=== PATIENT | female | born 1945 | race Caucasian/White ===

== ENCOUNTER 2021-11-10 17:50 | Emergency (ER) | payer OTHER, MEDICARE ==
--- OUTSIDE RECORDS SUMMARY | 2021-11-10 17:53 | XMS REPORT | Continuity of Care Document ---
:1945 Author Organization [facility] t Address [address] [place] [address] Dr. Martinez. [address] [place] [address] Care Team Providers Name Role Phone Michael WAGNER Primary Care Physician Unavailable SYSTEM, NOT IN Attending Clinician Unavailable [place] Attending Clinician Unavailable HERMINIA Attending Clinician Unavailable Katie Ware Attending Clinician Unavailable Ar DIAS, Laura Attending Clinician Unavailable Ryan Quintanilla Attending Clinician RYAN OAKLEY Attending Clinician Unavailable Raquel BROCK Attending Clinician Michael Wagner MD Attending Clinician Michael WAGNER Attending Clinician Unavailable REGULO Attending Clinician Unavailable FISH Attending Clinician Unavailable Payers Payer Name Policy Type Policy Effective Date Expiration Date Sour ce Number MEDICAREMEDICARE PART [id number] 2008 MD Camarena A AND 00:00:00 [id number] 2007-P [phone] [facility] [address] [address]Medicare [employer] [id number] 2020 MD Camarena OF RETIRED 00:00:00 PERSONSAARP-SECONDARY [id number] 1-Present [address], [place] [address]Txwbbmu Problems Condition Condition Condition Status Onset Resolution Last Treating Co mments Source Name Details Category Date Date Treatment Clinician Date Mastodynia Mastodynia Disease Active Overview : MD of right of right 3-09 Formattin And erso breast breast 00:00: g of this n 00 note might be different from the original. Right breast pain Mammograph Mammograph Disease Active M D y abnormal y abnormal 11-05 Carolee duarte 00:00: n 00 Allergies, Adverse Reactions, Alerts This patient has no known allergies or adverse reactions. Family History Family Member Diagnosis Comments Start Date Stop Date Source Natural brother Colon cancer MD Parminder carl Natural brother Heart attack MD Parminder carl Natural brother Skin cancer Olu son Natural father Lung cancer MD Castro on Maternal grandmother Heart failure Anthony Camarena Natural mother Melanoma MD Ramona dickens Natural mother Pancreatic cancer MD Camarena Natural mother Skin cancer MD Castro on Natural sister Heart failure MD Parminder carl Natural sister Heart attack Olu son Natural sister Kidney failure Social History Social Habit Start Date Stop Date Quantity Comments Source History of tobacco use Alcohol intake 2020-11-29 2020-11-29 Lifetime MD Ramona dickens 00:00:00 00:00:00 non-drinker (finding) Cigarettes smoked 2020-11-18 2020-11-18 MD Parminder carl current (pack per 00:00:00 00:00:00 day) - Reported Cigarette 2020-11-18 2020-11-18 MD Camarena pack-years 00:00:00 00:00:00 Tobacco use and 2020-11-18 2020-11-18 Smokeless tobacco MD Camarena exposure 00:00:00 00:00:00 non-user Tobacco Comment 2020-11-18 2020-11-18 current vaping MD Carolee amador 00:00:00 00:00:00 [birth year] F MD Castro on 00:00:00 00:00:00 Smoking Status Start Date Stop Date Source Ex-smoker 2020-11-18 00:00:00 2020-11-18 00:00:00 Olu son Medications Ordered Filled Start Stop Current Ordering Indication Dosage Frequency Signature Comments Components Source Medication Medication Date Date Medication? Clinician (SIG) Name Name aspirin 81 Yes 81mg Take 81 mg M D mg EC 11-18 by mouth Anderso tablet 13:24: daily. n 14 cholecalcif Yes 1{tbl} Take 1 MD ingrid, 11-18 tablet by Anderso vitamin D3, 13:04: mouth n (VITAMIN D3 36 twice ORAL) daily. BIOTIN ORAL Yes 1{tbl} Take 1 MD 3-22 tablet by Anderso 13:03: mouth n 43 daily. calcium Yes 1{tbl} Take 1 MD carbonate 3-22 tablet by Olu so (CALCIUM 13:03: mouth n 500 ORAL) 43 daily. esomeprazol Yes 40mg Take 40 mg MD e (NexIUM) 3-22 by mouth Olu so 40 MG 13:03: daily. n capsule 43 cyanocobala Yes 500ug Take 500 M D min 3-22 mcg by Anderso (VITAMIN 13:03: mouth n B-12) 500 43 daily. mcg tablet multivitami Yes 1{tbl} Take 1 MD n/iron/foli 3-22 tablet by And erso c acid 13:03: mouth n (CENTRUM 43 daily. ORAL) lisinopril Yes 2{tbl} Take 2 MD (PRINIVIL,Z 3-15 tablets by An derso ESTRIL) 20 00:00: mouth n mg tablet 00 daily. verapamil Yes 1{tbl} Take 1 MD (CALAN-SR) 3-15 tablet by Parminder rso 240 mg CR 00:00: mouth n tablet 00 twice daily. LORazepam Yes 1{tbl} Take 1 MD (ATIVAN) 1 2-11 tablet by Parminder rso mg tablet 00:00: mouth at n 00 bedtime. furosemide Yes 1{tbl} Take 1 MD (LASIX) 40 1-09 tablet by Parminder rso mg tablet 00:00: mouth as n 00 needed. Vital Signs Vital Name Observation Time Observation Value Comments Source HEIGHT 2020-11-18 12:54:56 165.5 cm WEIGHT 2020-11-18 12:54:56 83.2 kg HEIGHT 2020-11-18 12:54:56 165.5 cm WEIGHT 2020-11-18 12:54:56 83.2 kg Systolic blood pressure 2020-11-18 17:54:56 137 mm[Hg] MD Camarena Diastolic blood pressure 2020-11-18 17:54:56 74 mm[Hg] MD Camarena Heart rate 2020-11-18 17:54:56 69 /min MD Olu natarajan Body temperature 2020-11-18 17:54:56 36.78 Janeth MD Coleen abarca Respiratory rate 2020-11-18 17:54:56 18 /min MD Coleen abarca Body height 2020-11-18 17:54:56 165.5 cm MD Olu natarajan Body weight 2020-11-18 17:54:56 83.2 kg MD Olu natarajan BMI 2020-11-18 17:54:56 30.38 kg/m2 MD Olu natarajan Oxygen saturation in 2020-11-18 17:54:56 95 /min MD Camarena Arterial blood by Pulse oximetry Procedures Procedure Date / Time Performed Performing Clinician Sourc e US BREAST COMPLETE 2020-11-19 19:25:46 Eleno Oakley MD BILATERAL MAMMO DIGITAL DIAGNOSTIC 2020-11-19 18:49:00 Eleno Oakley MD BILATERAL W HUGO HC 2019-NCOV COVID-19 2020-11-14 18:14:00 Maricel Wagner MD Plan of Care Planned Activity Planned Date Details Comments Source Future Scheduled Test 1950 00:00:00 COVID-19 Vaccination MD Camarena (1) [code = COVID-19 Vaccination (1)] Encounters Start End Encounter Admission Attending Care Care Encounter Source Date/Time Date/Time Type Type Clinicians Facility Department ID 2020-10-30 Eyad GOMEZ MDA MDA [id number] 16:50:00 PROVIDER Matthewgus dickens 2021-10-21 2021-10-21 Outpatient [facility] [id number] [place] 00:00:00 00:00:00 ZENIA [address] 2021-09-04 2021-09-04 Outpatient [facility] [id number] [place] 00:00:00 00:00:00 ZENIA [address] 2021-03-21 2021-03-21 [id number] [place] 00:00:00 00:00:00 CONCETTA [address] 2021-03-12 2021-03-12 [facility] [id number] [place] 00:00:00 00:00:00 CONC[address]TA [address] 2020-11-19 2020-11-19 Outpatient EL BRIDGES, MDA MDA [id number] 13:52:47 13:52:47 ELENO Zurita rso n 2020-11-19 2020-11-19 Outpatient EL BRIDGES, MDA MDA [id number] 12:57:15 12:57:15 ELENO Zurita rso n 2020-11-18 2020-11-18 Outpatient EL CHECKA, MDA MDA [id number] 12:48:38 15:06:20 MARICEL Olu so n 2020-11-18 2020-11-18 Outpatient EL CHECKA, MDA MDA [id number] MD 12:45:43 12:51:39 MARICEL Olu so n 2020-11-15 2020-11-15 Outpatient EL CHECKA, MDA MDA [id number] MD 09:07:51 09:07:51 MARICEL Olu so n 2020-11-15 2020-11-15 Outpatient EL CHECKA, MDA MDA [id number] MD 09:07:50 09:07:50 MARICEL Olu so n 2020-11-15 2020-11-15 Outpatient EL CHECKA, MDA MDA [id number] 09:07:48 09:07:48 MARICEL Olu so n 2020-11-15 2020-11-15 Outpatient EL CHECKA, MDA MDA [id number] MD 09:07:46 09:07:46 MARICEL Olu so n 2020-11-15 2020-11-15 Outpatient EL CHECKA, MDA MDA [id number] MD 09:07:45 09:07:45 MARICEL Olu so n 2020-11-14 2020-11-14 Outpatient EL CHECKA, MDA MDA [id number] MD 12:39:47 13:15:08 MARICEL Olu so n 2020-04-22 2020-04-22 Outpatient [facility] [id number] [place] 00:00:00 00:00:[address] 2020-04-22 2020-04-22 Outpatient REGULO [facility] [id number] [place] 00:00:00 00:00:[address] 2020-04-22 2020-04-22 Outpatient [facility] [id number] [place] [address] 00:00:00 00:00:[address] 2020-04-15 2020-04-15 Outpatient [facility] [id number] [place] 00:00:00 00:00:[address] 2020-03-26 2020-03-26 Outpatient RICO RAJPUT [facility] [id number] [place] 00:00:00 00:00:[address] 2020-03-08 2020-03-08 Outpatient [facility] [id number] [place] 00:00:00 00:00:00 DERRICK [address] 2019-11-14 2019-11-14 Outpatient FISH [facility] [id number] [place] 00:00:00 00:00:00 DERRICK [address] 2019-11-06 2019-11-06 Outpatient [facility] [id number] [place] 00:00:00 00:00:00 DERRICK [address] Results Test Description Test Time Test Comments Results Result Comments Source Mammography Digital Diagnostic Bilateral with Hugo 2020-10-29 14:16:50 Test Item Value Reference Range Interpretation Comme nts IMP (test code = IMP) Area of palpable concern in the right axilla requires additional evaluation. Anultrasound is recommended. BI-RADS Category 0:Incomplete: Needs Additional Imaging Evaluation PXN (test code = PXN) Erika Mike MD - 11/21/2020 CLINICAL INDICATION:Patient is a 75 year old female and is seen for breast lump MAMMO DIGITAL DIAGNOSTIC BILATERAL W TOMODigital Mammogram evaluated with Computer Aided Detection (CAD). COMPARISON:The present examination has been compared to prior imaging studies performed atan outside location on 05/14/2014, 02/26/2016, 09/21/2017, 09/22/2018 and10/09/2020. FINDINGS:There are scattered areas of fibroglandular density. The patient reports a palpable finding in the right axilla. There is nomammographic abnormality in the region of palpable concern. No dominant mass, distortion or suspicious calcifications are identified in theright breast. In the left breast, no dominant mass, distortion, or suspicious calcificationsare identified. Tomosynthesis performed in CC and MLO projections. IMPRESSION: Area of palpable concern in the right axilla requires additional evaluation. Anultrasound is recommended. BI-RADS Category 0:Incomplete: Needs Additional Imaging Evaluation Lab Interpretation (test code = 37427-0) Abnormal MD CamarenaMD COVID-19 (SARAHY-CoV-2) PCR [id number] 11:33:52 Test Item Value Reference Interpretation Comments Range COVID19 SARS New Patient Indication (test code = 54966) COVID19 SARS Result Not Detected Not Detected (test code = 69471-6) COVID19 SARS SARS-CoV-2 NOT Detected. Interpretation (test Reference Range: Not code = 49149) Detected Methodology: The Prasad RealTime SARS-CoV-2 assay is a qualitative real-time reverse colorer hides and skins polymerase chain reaction (store sales leader-PCR) test to detect RNA from SARS-CoV-2 in nasal, nasopharyngeal and oropharyngeal swabs from patients with signs and symptoms of infection who are suspected of COVID-19 by their health care provider. The Prasad RealTime SARS-CoV-2 performed on the CellScape000 System is a dual target assay with primers and probes for the RdRp and N genes. Results must be interpreted within the context of all relevant clinical and laboratory findings, and epidemiological risk factors. Positive results are indicative of the presence of SARS-CoV-2 RNA; clinical correlation with patient history and other diagnostic information is necessary to determine patient infection status. Positive results do not rule out bacterial infection or co-infection with other viruses. Negative results do not preclude SARS-CoV-2 infection and should not be used as the sole basis for patient management decisions. The Prasad RealTime SARS-CoV-2 assay is for in vitro diagnostic use under FDA Emergency Use Authorization only. Testing is limited to laboratories certified under the Clinical Laboratory Improvement Amendments of 1988 (CLIA), 42U.S.C. 263a, to perform high complexity tests. The Test was performed by the CLIA-certified, high-complexity [facility] ([facility]) at [facility] under the Food and Drug Administration (FDA) s Emergency Use Authorization. Factsheet for patients: https://www.[facility].org/ AbbottFactSheetPatientsFact sheet for healthcare providers: https://[email or web address].org/ AbbottFactSheetHCP Test performed by:[facility] [place] [address] [place], [place] [address] [place] [address]
--- OUTSIDE RECORDS SUMMARY | 2021-11-10 17:53 | XMS REPORT | Clinical Summary ---
:1945 Author Organization [facility] MD Raines [facility] Address [address] [place] [address] Care Team Providers Name Role Phone Nia Hollis MD Unavailable Michael Wagner MD Primary Care Provider Allergies Active Allergy Reactions Severity Noted Date Comments Levofloxacin Other (See Comments) High 04/18/2018 Pain in legs and arms Pain in legs Medications Medication Sig Dispensed Refills Start Date End Date Status BIOTIN ORAL Take 1 tablet by 0 A ctive mouth daily. calcium carbonate Take 1 tablet by 0 Active (CALCIUM 500 ORAL) mouth daily. verapamil (CALAN-SR) 240 Take 1 tablet by 0 11/12/19 21 Active mg CR tablet mouth twice daily. LORazepam (ATIVAN) 1 mg Take 1 tablet by 0 1 Active tablet mouth at bedtime. lisinopril Take 2 tablets 0 11/11/2020 Act gwendolyn (PRINIVIL,ZESTRIL) 20 mg by mouth daily. tablet furosemide (LASIX) 40 mg Take 1 tablet by 0 09/07/19 21 Active tablet mouth as needed. esomeprazole (NexIUM) 40 Take 40 mg by 0 Active MG capsule mouth daily. cyanocobalamin (VITAMIN Take 500 mcg by 0 Active B-12) 500 mcg tablet mouth daily. multivitamin/iron/folic Take 1 tablet by 0 Active acid (CENTRUM ORAL) mouth daily. cholecalciferol, vitamin Take 1 tablet by 0 Active D3, (VITAMIN D3 ORAL) mouth twice daily. aspirin 81 mg EC tablet Take 81 mg by 0 Active mouth daily. Active Problems Problem Noted Date Mastodynia of right breast 11/05/2020 Overview: Right breast pain Mammography abnormal 11/05/2020 Encounters Date Type Specialty Care Team Description 12/05/2020 Telephone Oncology Ayanna Ware 11/27/2020 Telephone Radiation Oncology Isaías Joyner, ARUN 11/19/2020 Ancillary Radiology Pola Oakley Mastodyni a of right breast; Procedure Ryan, PA Mammography abn ormal 11/19/2020 Ancillary Radiology Pola Oakley Mastodyni a of right breast; Procedure Ryan, PA Mammography abn ormal 11/19/2020 Travel 11/19/2020 Orders Only Deepak Holley, SARS-CoV-2 MD vaccination 11/18/2020 Office Visit Breast Surgical Checka, Maricel Franklin ia of right breast (Primary Dx); Oncology MD Michael Mammography abn ormal 11/18/2020 NPR Patient Access CheckaMaricel MD 11/18/2020 Orders Only Breast Surgical Ar, Magaly Sanchez RN 11/18/2020 Travel 11/15/2020 Ancillary Radiology CheckaMaricel Cancer Procedure MD Michael 11/15/2020 Ancillary Radiology CheckMaricel masters Cancer Procedure MD Michael 11/15/2020 Ancillary Radiology CheckMaricel masters Cancer Procedure MD Michael 11/15/2020 Ancillary Radiology CheckMaricel masters Cancer Procedure MD Michael 11/15/2020 Ancillary Radiology CheckaMaricel Cancer Procedure MD Michael 11/14/2020 Clinical Support Maricel Jones Suspect ed TONY Rodriguez MD (Primary Dx) 11/14/2020 Travel after 11/10/2020 Surgical History Surgery Date Site/Laterality Comments APPENDECTOMY 08/30/1983 - 08/29/1984 BACK SURGERY 08/30/1995 - 08/29/1996 COLONOSCOPY 08/30/2018 - 08/29/2019 HYSTERECTOMY 08/30/1983 - total- ovaries 08/29/1984 removed- benign fibroid tumor CHOLECYSTECTOMY 08/30/1993 - 08/29/1994 UPPER GASTROINTESTINAL 08/30/2018 - ENDOSCOPY 08/29/2019 SKIN SURGERY 08/30/2016 - Right right hand SCC- 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 Mcelroy- 2 different t ests- narrowing of blood vessels in hea d Family History Medical History Relation Name Comments Colon cancer Brother 1 Elijah removed Heart attack Brother 1 Elijah Skin cancer Brother 1 Elijah Heart attack Brother 2 Red Skin cancer Brother 2 Red Heart attack Brother 3 Lung cancer Father Donta Heart failure Maternal Grandmother Melanoma Mother Apurva Pancreatic cancer Mother Apurva Skin cancer Mother Apurva Heart failure Sister 1 Heart attack Sister 2 Kidney failure Sister 2 during cottrell splant Relation Name Status Comments Brother 1 Elijah Brother 2 Red Brother 3 Father Donta Maternal Grandmother Mother Apurva Sister 1 Sister 2 Social History Tobacco Use Types Packs/Day Years Used Date Former Smoker Electronic cigarette 0.5 10 Smokeless Tobacco: Never Used Comments: current vaping Alcohol Use Standard Drinks/Week Comments Never 0 (1 standard drink = 0.6 oz pure alcoho l) Sex Assigned at Date Recorded Female 11/15/2020 3:47 PM CDT Job Start Date Occupation Industry Not on file Not on file Not on file Obstetrics History Comments (1 miscarriage) Menarche: 13 Parity: 20 OCP: 1 yr Breast feed: no Total Hys age 38 HRT: 26 yrs Last Filed Vital Signs Vital Sign Reading Time Taken Comments Blood Pressure 137/74 11/18/2020 12:54 PM CDT Pulse 69 11/18/2020 12:54 PM CDT Temperature 36.8 C (98.2 F) 11/18/2020 12:54 PM CDT Respiratory Rate 18 11/18/2020 12:54 PM CDT Oxygen Saturation 95% 11/18/2020 12:54 PM CDT Inhaled Oxygen Concentration - - Weight 83.2 kg (183 lb 6.8 oz) 11/18/2020 12:54 PM CDT Height 165.5 cm (5' 5.16") 11/18/2020 12:54 PM CDT Body Mass Index 30.38 11/18/2020 12:54 PM CDT Plan of Treatment Health Maintenance Due Date Last Done Comments COVID-19 Vaccination (1) 1950 Procedures Procedure Name Priority Date/Time Associated Comments Diagnosis US BREAST COMPLETE Routine 11/19/2020 2:25 PM Mastodynia of r ight Results for this BILATERAL CDT breast procedure are in Mammography the results abnormal section. MAMMO DIGITAL Routine 11/19/2020 1:49 PM Mastodynia of right Results for this DIAGNOSTIC BILATERAL CDT breast procedure are in [facility] Mammography the results abnormal section. HC 2019-NCOV Routine 11/14/2020 1:14 PM Suspected COVID-19 Re sults for this COVID-19 CDT procedure are i n the results section. after 11/10/2020 Results US Breast Complete Bilateral (11/19/2020 2:25 PM CDT) Specimen Impressions [facility] - 11/19/2020 3:14 PM CDT There is no sonographic evidence of malignancy. Area of palpable concern in the right ax illa corresponds with benign axillary tissue. Recommend continued clinical fol low-up of the patient's reported area of clinical concern. Dr. Mike discussed the above findings with the patient at the time of her examination. Follow-up mammogram in 1 year is recomme nded. BI-RADS Category 2: Benign Finding(s) Narrative [facility] [place] - 11/19/2020 3:14 PM CDT CLINICAL INDICATION: Patient is a 75 year old female and is s een for breast lump FILMS COMPARED The present examination has been compare d to prior imaging studies performed at an outside location on 09/21/2017, 09/22 and 10/09/2020. Images were obtained in multiple scannin g planes. Real-time sonographic imaging of both br easts (including all 4 quadrants and retroareolar region) was performed. Re al time sonographic imaging of bilateral axilla was performed. The area of palpable concern in the righ t axilla corresponds with benign axillary tissue. No suspicious axillary adenopathy is visualized. Procedure Note Erika Mike MD - 11/19/2020 CLINICAL INDICATION: Patient is a 75 year old female and is s een for breast lump FILMS COMPARED The present examination has been compare d to prior imaging studies performed at an outside location on 09/21/2017, 09/22 and 10/09/2020. Images were obtained in multiple scannin g planes. Real-time sonographic imaging of both br easts (including all 4 quadrants and retroareolar region) was performed. Lowry l time sonographic imaging of bilateral axilla was performed. The area of palpable concern in the righ t axilla corresponds with benign axillary tissue. No suspicious axillary adenopathy is visualized. IMPRESSION: There is no sonographic evidence of david gnancy. Area of palpable concern in the right ax illa corresponds with benign axillary tissue. Recommend continued clinical fol low-up of the patient's reported area of clinical concern. Dr. Mike discussed the above findings with the patient at the time of her examination. Follow-up mammogram in 1 year is recomme nded. BI-RADS Category 2: Benign Finding(s) Performing Organization Address City/State/ZIP Code Phon e Number [facility] (ABNORMAL) Mammography Digital Diagnostic Bilateral with Hugo (11/19/2020 1:49 PM CDT) Specimen Impressions [facility] - 11/21/2020 9:16 AM CDT Area of palpable concern in the right ax illa requires additional evaluation. An ultrasound is recommended. BI-RADS Category 0: Incomplete: Needs Additional Imaging Sarah luation Narrative [facility] - 11/21/2020 9:16 AM CDT CLINICAL INDICATION: Patient is a 75 year old female and is s een for breast lump MAMMO DIGITAL DIAGNOSTIC BILATERAL W JEANE O Digital Mammogram evaluated with Compute r Aided Detection (CAD). COMPARISON: The present examination has been compare d to prior imaging studies performed at an outside location on 05/14/2014, 02/25, 09/21/2017, 09/22/2018 and 10/09/2020. FINDINGS: There are scattered areas of fibroglandu lar density. The patient reports a palpable finding i n the right axilla. There is no mammographic abnormality in the region o f palpable concern. No dominant mass, distortion or suspicio us calcifications are identified in the right breast. In the left breast, no dominant mass, di stortion, or suspicious calcifications are identified. Tomosynthesis performed in CC and MLO pr ojections. Procedure Note Erika Mike MD - 11/21/2020 CLINICAL INDICATION: Patient is a 75 year old female and is s een for breast lump MAMMO DIGITAL DIAGNOSTIC BILATERAL W JEANE O Digital Mammogram evaluated with Compute r Aided Detection (CAD). COMPARISON: The present examination has been compare d to prior imaging studies performed at an outside location on 05/14/2014, 02/25, 09/21/2017, 09/22/2018 and 10/09/2020. FINDINGS: There are scattered areas of fibroglandu lar density. The patient reports a palpable finding i n the right axilla. There is no mammographic abnormality in the region o f palpable concern. No dominant mass, distortion or suspicio us calcifications are identified in the right breast. In the left breast, no dominant mass, di stortion, or suspicious calcifications are identified. Tomosynthesis performed in CC and MLO pr ojections. IMPRESSION: Area of palpable concern in the right ax illa requires additional evaluation. An ultrasound is recommended. BI-RADS Category 0: Incomplete: Needs Additional Imaging Sarah luation Performing Organization Address City/State/ZIP Code Phon e Number JAMARI BROCK COVID-19 (SARAHY-CoV-2) PCR Asymptomatic (11/14/2020 1:14 PM CDT) COVID19 SARS New Patient [facility] Indication [facility] [place] COVID19 SARS Result Not Detected Not Detected [facility] COVID19 SARS SARS-CoV-2 NOT Detected. [facility] Interpretation [facility] Reference Range: Not Detected Methodology: The Prasad Real Time SARS-CoV-2 assay is a qualitative real-time reverse sales planner polymerase chain reaction (terminal system operator-PCR) test to detect RNA from SARS-CoV-2 in nasal, nasopharyngeal and oropharyngeal swabs from patients with signs and symptoms of infection who ar e suspected of COVID-19 by their health care provider. The Prasad RealTime SARS-CoV-2 performed on the [employer]000 System is a dual target assay with primers and probes for the RdRp and N genes. Results must be interpreted within the context of all relevant clinical and laboratory findings, and epidemiological risk factors. Positive results are indicative of the presence of SARS-CoV-2 RNA; clinical correlation with patient history and other diagnostic information is ne cessary to determine patient infection status. Positive results do not rule out bacterial infection or co-infection with other viruses. Negative results do not preclude SARS- CoV-2 infection and should not be used as the sole basis for patient management decisions. The Prasad RealTime SARS-CoV -2 assay is for in vitro diagnostic use under FDA Emergency Use Authorization only. Testing is limited to laboratories certified under the Clinical Laboratory Improvement Sharon ndments of 1988 (CLIA), 42U.S.C. 263a, to perform high complexity tests. The T est was performed by the CLIA-certified, high- complexity Molecular Diagnostics Laboratory (MDL) at [facility] under the Food and Drug Administration (FDA) s Emergency Use Authorization. Factsheet for patients: https://www.[facility].org/Abb ottFactSheetPatients Factsheet for healthcare pro viders: https://www.[facility].org/AbbottFactSheetHCP Test performed by: [facility] [place] [facility] [address] [place] [address] Specimen Nasopharyngeal Swab Performing Organization Address City/State/ZIP Code Phon e Number [facility] CANCER Unless otherwise noted, [place] [address] CENTER all lab tests performed by: Division of Pathology and Laboratory Medicine [address] after 11/10/2020 Insurance Payer Benefit Plan Subscriber ID Effective Phone Address Typ e / Group Dates MEDICARE MEDICARE PART [id number] 2008-Pres [phone] [facility] Medicare A AND B ent [id number] [employer] [address] [facility] [place] [phone] [place] AARP-SECONDAR [id number] 2020-Pres [address] [place] [employer] ONLY ent [id number] [place] [address] (Home) [address] [place] [phone] Livier Brice Personal/Family Self 1945 [address] [place] [address] (Home) [address] [place] [phone] Care Teams Sprayer Leather Relationship Specialty Start Date End Date Nia Hollis, PCP - External Referring Obstetrics/Gynecology 10/31/[address] [place] [id number] Maricel Wagner, PCP - General Surgical Oncology 11/01/20 [facility] [place] [address]
--- NOTE | 2021-11-10 18:40 | RAD REPORT ---
EXAM DESCRIPTION: CT - Ct Stroke Brain Wo Cont - 11/10/2021 6:33 pm CLINICAL HISTORY: Numbness COMPARISON: 08/2021 TECHNIQUE: Computed axial tomography of the head was obtained. All CT scans are performed using dose optimization technique as appropriate and may include automated exposure control or mA/KV adjustment according to patient size. FINDINGS: An intracranial bleed is not seen . The ventricles are normal in caliber. No extra-axial fluid collection is noted. Mild to moderate low-density within periventricular, deep and subcortical white matter likely ischemi c changes secondary to small vessel disease Fluid within the sinuses/ mastoids is not seen. IMPRESSION: No acute intracranial abnormality is seen. If patient's symptoms persist MRI of the bra in would be recommended. Dr Baca of the emergency room was notified at 6:16 p.m. November 10, 2021
[2021-11-10 18:42] LABS: Absolute Lymphocytes (CBC) 2.3 K/uL (0.7-4.9); Hematocrit 38.7 % (36.0-45.0); Lymphocytes % 30.7 % (15.3-44.8); MPV 8.9 fL (7.6-11.3); RBC Red Blood Cell Count 4.51 M/uL (3.86-4.86)
[2021-11-10 18:48] LABS: Protime INR 0.98
[2021-11-10 18:58] LABS: Potassium 3.3 mmol/L (3.5-5.1)
--- NOTE | 2021-11-10 19:25 | ER ---
Nurse's Notes [facility] Name: Livier Brice Age: 76 yrs Sex: Female : 1945 Arrival Date: 11/10/2021 Time: 17:51 Bed 5 Private MD: Diagnosis: Hypertensive urgency;Paresthesia of skin Presentation: 11/10 17:58 Chief complaint: Patient states: she took her blood pressure at approx 1700 and it was ap3 168/147. She reports she began having a numbness/tingling feeling to the right side of her face around 1630. Coronavirus screen: At this time, the client does not indicate any symptoms associated with coronavirus-19. Ebola Screen: No symptoms or risks identified at this time. Initial Sepsis Screen: Does the patient meet any 2 criteria? No. Patient's initial sepsis screen is negative. Does the patient have a suspected source of infection? No. Patient's initial sepsis screen is negative. Risk Assessment: Do you want to hurt yourself or someone else? Patient reports no desire to harm self or others. Onset of symptoms was November 10, 2021 at 16:30. 17:58 Method Of Arrival: Ambulatory ap3 17:58 Acuity: MARY JANE 2 ap3 Triage Assessment: 18:00 General: Appears in no apparent distress. comfortable, Behavior is calm, cooperative. ap3 General: patient reports right side of face is tingling and feels "funny". Pain: Denies pain. Neuro: Level of Consciousness is awake, alert, obeys commands, Oriented to person, place, time, situation, Appropriate for age Gait is steady, Speech is normal, Facial symmetry appears normal. Cardiovascular: Patient's skin is warm and dry. Respiratory: Airway is patent Respiratory effort is even, unlabored. Historical: - Allergies: 18:00 No Known Allergies; ap3 - Home Meds: 18:00 Verapamil Oral [Active]; Clonidine Oral [Active]; ap3 - PMHx: 18:00 Hypertensive disorder; ap3 - Immunization history:: Client reports receiving the 2nd dose of the Covid vaccine. - Social history:: Smoking status: Patient denies any tobacco usage or history of. Screenin:03 Abuse screen: Denies threats or abuse. Nutritional screening: No deficits noted. ap3 Tuberculosis screening: No symptoms or risk factors identified. 18:26 Fall Risk None identified. ab2 18:57 Patient has been NPO before screening. The patient is alert, able to follow commands. jg9 The patient does not exhibit slurred or garbled speech The patient is not exhibiting difficulty speaking. The patient does not exhibit difficulty understanding words. The patient is able to swallow own secretions with no drooling or need for suction. Patient tolerated one teaspoon of water. No drooling, immediate coughing, gurgling, or clearing of the throat was noted. The patient tolerated 90mL of water. No drooling, immediate coughing, gurgling, or clearing of the throat was noted. The patient passed the bedside swallow screening. Oral medications may be given as ordered. Contact Physician for further diet orders. Assessment: 18:23 General: Appears in no apparent distress. comfortable, Behavior is calm, cooperative, ab2 appropriate for age. Pain: Denies pain. Neuro: Level of Consciousness is awake, alert, obeys commands, Oriented to person, place, time, situation, Appropriate for age Vice President Of Operations are equal bilaterally Moves all extremities. Gait is steady, Speech is normal, Facial symmetry appears normal, Pupils are PERRLA, Intact. Cardiovascular: No deficits noted. Denies chest pain, shortness of breath, Heart tones S1 S2 present Patient's skin is warm and dry. Rhythm is sinus rhythm. Respiratory: No deficits noted. Airway is patent Respiratory effort is even, unlabored, Respiratory pattern is regular, symmetrical, Breath sounds are clear bilaterally. GI: No deficits noted. No signs and/or symptoms were reported involving the gastrointestinal system. Abdomen is round non-distended, Bowel sounds present X 4 quads. Patient currently denies abdominal pain. : No deficits noted. No signs and/or symptoms were reported regarding the genitourinary system. EENT: No deficits noted. No signs and/or symptoms were reported regarding the EENT system. Derm: Skin is intact, is healthy with good turgor, Skin is dry, Skin is pink, warm \\T\\ dry. Musculoskeletal: No deficits noted. No signs and/or symptoms reported regarding the musculoskeletal system. Range of motion: intact in all extremities. 20:23 Reassessment: Pt stating she cannot be admitted to the hospital because she has to take sm5 care of her . Explained reasoning for admission and the possible risks of leaving AMA. Pt aware and understood. AMA paperwork signed. Pt informed if she has recurring symptoms to come back to ER. IV removed. Hospitalist made aware. Vital Signs: 17:58 BP 170 / 85; Pulse 72; Resp 17; Temp 98.8; Pulse Ox 96% ; Weight 81.65 kg; Height 5 ft. ap3 6 in. (167.64 cm); 18:22 BP 138 / 86; Pulse 60; Resp 16; Pulse Ox 98% on R/A; ab2 18:45 BP 129 / 69; Pulse 67; Resp 18 S; Pulse Ox 99% on R/A; jg9 20:23 BP 144 / 65; Pulse 56; Resp 18; Pulse Ox 100% on R/A; sm5 17:58 Body Mass Index 29.05 (81.65 kg, 167.64 cm) ap3 Maribell Coma Score: 18:26 Eye Response: spontaneous(4). Verbal Response: oriented(5). Motor Response: obeys ab2 commands(6). Total: 15. 20:23 Eye Response: spontaneous(4). Verbal Response: oriented(5). Motor Response: obeys sm5 commands(6). Total: 15. Trauma Score (Adult): 18:26 Eye Response: spontaneous(1); Verbal Response: oriented(1); Motor Response: obeys ab2 commands(2); Systolic BP: > 89 mm Hg(4); Respiratory Rate: 10 to 29 per min(4); Maribell Score: 15; Trauma Score: 12 NIH Stroke Scale Scores: 18:26 NIHSS Score: 0 ab2 18:29 NIHSS Score: 1 kdr ED Course: 17:51 Patient arrived in ED. ja2 18:00 Triage completed. ap3 18:03 Patient has correct armband on for positive identification. ap3 18:[address] via wheelchair. ap3 18:15 EKG done, by ED staff, reviewed by Sean Baca MD. 3 18:22 Ryan Badillo is Primary Nurse. ab2 18:22 Initial lab(s) drawn, by ia, sent to lab. Inserted saline lock: 20 gauge in right 3 antecubital area, using aseptic technique. Blood collected. 18:28 Arm band placed on right wrist. ab2 18:28 No provider procedures requiring assistance completed. ab2 18:29 Sean Baca MD is Attending Physician. kdr 18:33 CT Stroke Brain w/o Contrast In Process Unspecified. EDMS 18:59 Stroke CXR 1 View In Process Unspecified. EDMS 19:24 Popeye Euceda MD is Hospitalizing Provider. kdr 19:[address] In Process Unspecified. EDMS 19:[address] In Process Unspecified. EDMS 20:25 IV discontinued, intact, bleeding controlled, No redness/swelling at site. Pressure sm5 dressing applied. Administered Medications: No medications were administered Outcome: 19:25 Decision to Hospitalize by Provider. kdr 20:25 AMA AMA form signed sm5 20:25 Condition: stable 20:25 Instructed on need to come back to ER if symptoms reoccur 20:32 Patient left the ED. sm5 NIH Stroke Scale - NIH Stroke Score Date: 11/10/2021 Time: 18:26 Total Score = 0 1a. Level of Consciousness (LOC) - 0(Alert) 1b. Level of Consciousness (LOC) (Month \\T\\ Age) - 0(Both) 1c. LOC Commands (Open \\T\\ Closes Eyes/Sewing Department Supervisor) - 0(Both) 2. Best Gaze (Lateral Gaze Paresis) - 0(Normal) 3. Visual Field Loss - 0(No visual loss) 4. Facial Palsy - 0(Normal) 5a. Left Arm: Motor (10-second hold) - 0(No drift) 5b. Right Arm: Motor (10-second hold) - 0(No drift) 6a. Left Leg: Motor (5-second hold - always test supine) - 0(No drift) 6b. Right Leg: Motor (5-second hold - always test supine) - 0(No drift) 7. Limb Ataxia (finger/nose \\T\\ heel/valencia - test with eyes open) - 0(Absent) 8. Sensory Loss (pinprick arms/legs/face) - 0(Normal) 9. Best Language: Aphasia (description/naming/reading) - 0(No aphasia) 10. Dysarthria (speech clarity - read or repeat words) - 0(Normal) 11. Extinction and Inattention (visual/tactile/auditory/spatial/personal) - 0(No abnormality) Initials: ab2 NIH Stroke Scale - NIH Stroke Score Date: 11/10/2021 Time: 18:29 Total Score = 1 1a. Level of Consciousness (LOC) - 0(Alert) 1b. Level of Consciousness (LOC) (Month \\T\\ Age) - 0(Both) 1c. LOC Commands (Open \\T\\ Closes Eyes/Sewing Department Supervisor) - 0(Both) 2. Best Gaze (Lateral Gaze Paresis) - 0(Normal) 3. Visual Field Loss - 0(No visual loss) 4. Facial Palsy - 0(Normal) 5a. Left Arm: Motor (10-second hold) - 0(No drift) 5b. Right Arm: Motor (10-second hold) - 0(No drift) 6a. Left Leg: Motor (5-second hold - always test supine) - 0(No drift) 6b. Right Leg: Motor (5-second hold - always test supine) - 0(No drift) 7. Limb Ataxia (finger/nose \\T\\ heel/valencia - test with eyes open) - 0(Absent) 8. Sensory Loss (pinprick arms/legs/face) - 1(Mild to moderate loss) 9. Best Language: Aphasia (description/naming/reading) - 0(No aphasia) 10. Dysarthria (speech clarity - read or repeat words) - 0(Normal) 11. Extinction and Inattention (visual/tactile/auditory/spatial/personal) - 0(No abnormality) Initials: kdr Signatures: Dispatcher [employer] EDSean Gonzalez MD MD kdr Herrera, Deanna 3 Isabell Jhaveri RN RN [id number] Poly Azevedo Sarah RN RN sm5 Salma Morrissey RN RN jg9 Ryan Badillo
--- NOTE | 2021-11-10 19:25 | EDPHYS ---
Physician Documentation [facility] Name: Livier Brice Age: 76 yrs Sex: Female : 1945 Arrival Date: 11/10/2021 Time: 17:51 Bed 5 Private MD: ED Physician Sean Baca HPI: 11/10 19:17 This 76 yrs old Female presents to ER via Ambulatory with complaints of High Blood kdr Pressure, Numbness Of Face. 19:17 The patient has elevated blood pressure and discovered this at home. Onset: The kdr symptoms/episode began/occurred suddenly, at 1500. Modifying factors: The symptoms are aggravated by Nothing, The symptoms are alleviated by . Associated signs and symptoms: Pertinent positives: Paresthesia lateral to the right eye. Severity of symptoms: At its worst the blood pressure was mild, 164 mm Hg, in the emergency department the blood pressure is improved, moderately. The patient has not experienced similar symptoms in the past. The patient has been recently seen by a physician: Patient is under constant care by her [place] physicians. She states that her blood pressure is very labile. Today when she saw that her blood pressure elevated in the afternoon, she became very concerned. At about the same time she had this numbness and paresthesia (tightness) to the right lateral aspect of her face. That has subsequently resolved. She had no other focal neurologic symptoms or concerns. She appears to be back to baseline at this time.. Initial head CT was called to me as negative by Dr. Barnes. I discussed these findings with both Dr. Zheng and Dr. Hunter. Both agreed that the patient was not currently a candidate for TPA. Patient will be admitted this evening and have a angiogram of head and neck performed followed by an MRI MRA tomorrow. Dr. Hunter will see the patient as a consult tomorrow.. Historical: - Allergies: 18:00 No Known Allergies; ap3 - Home Meds: 18:00 Verapamil Oral [Active]; Clonidine Oral [Active]; ap3 - PMHx: 18:00 Hypertensive disorder; ap3 - Immunization history:: Client reports receiving the 2nd dose of the Covid vaccine. - Social history:: Smoking status: Patient denies any tobacco usage or history of. ROS: 19:17 Constitutional: Negative for fever, chills, and weight loss, Eyes: Negative for injury, kdr pain, redness, and discharge, ENT: Negative for injury, pain, and discharge, Neck: Negative for injury, pain, and swelling, Cardiovascular: Negative for chest pain, palpitations, and edema, Respiratory: Negative for shortness of breath, cough, wheezing, and pleuritic chest pain, Abdomen/GI: Negative for abdominal pain, nausea, vomiting, diarrhea, and constipation, Back: Negative for injury and pain, : Negative for injury, bleeding, discharge, and swelling, MS/Extremity: Negative for injury and deformity, Skin: Negative for injury, rash, and discoloration, Psych: Negative for depression, anxiety, suicide ideation, homicidal ideation, and hallucinations, Allergy/Immunology: Negative for hives, rash, and allergies, Endocrine: Negative for neck swelling, polydipsia, polyuria, polyphagia, and marked weight changes, Hematologic/Lymphatic: Negative for swollen nodes, abnormal bleeding, and unusual bruising. 19:17 Neuro: Positive for numbness, Right facial paresthesia resolved. Exam: 19:17 Constitutional: This is a well developed, well nourished patient who is awake, alert, kdr and in no acute distress. Her blood pressure is 129 over 60s Head/Face: Normocephalic, atraumatic. Eyes: Pupils equal round and reactive to light, extra-ocular motions intact. Lids and lashes normal. Conjunctiva and sclera are non-icteric and not injected. Cornea within normal limits. Periorbital areas with no swelling, redness, or edema. Neck: Trachea midline, no thyromegaly or masses palpated, and no cervical lymphadenopathy. Supple, full range of motion without nuchal rigidity, or vertebral point tenderness. No Meningismus. Chest/axilla: Normal chest wall appearance and motion. Nontender with no deformity. No lesions are appreciated. Cardiovascular: Regular rate and rhythm with a normal S1 and S2. No gallops, murmurs, or rubs. Normal PMI, no JVD. No pulse deficits. Respiratory: Lungs have equal breath sounds bilaterally, clear to auscultation and percussion. No rales, rhonchi or wheezes noted. No increased work of breathing, no retractions or nasal flaring. Abdomen/GI: Soft, non-tender, with normal bowel sounds. No distension or tympany. No guarding or rebound. No evidence of tenderness throughout. Back: No spinal tenderness. No costovertebral tenderness. Full range of motion. Skin: Warm, dry with normal turgor. Normal color with no rashes, no lesions, and no evidence of cellulitis. MS/ Extremity: Pulses equal, no cyanosis. Neurovascular intact. Full, normal range of motion. Neuro: Awake and alert, GCS 15, oriented to person, place, time, and situation. Cranial nerves II-XII grossly intact. Motor strength 5/5 in all extremities. Sensory grossly intact. Cerebellar exam normal. Normal gait. Psych: Awake, alert, with orientation to person, place and time. Behavior, mood, and affect are within normal limits. Vital Signs: 17:58 BP 170 / 85; Pulse 72; Resp 17; Temp 98.8; Pulse Ox 96% ; Weight 81.65 kg; Height 5 ft. ap3 6 in. (167.64 cm); 18:22 BP 138 / 86; Pulse 60; Resp 16; Pulse Ox 98% on R/A; ab2 18:45 BP 129 / 69; Pulse 67; Resp 18 S; Pulse Ox 99% on R/A; jg9 20:23 BP 144 / 65; Pulse 56; Resp 18; Pulse Ox 100% on R/A; sm5 17:58 Body Mass Index 29.05 (81.65 kg, 167.64 cm) ap3 NIH Stroke Scale Scores: 18:26 NIHSS Score: 0 ab2 18:29 NIHSS Score: 1 kdr Sanders Coma Score: 18:26 Eye Response: spontaneous(4). Verbal Response: oriented(5). Motor Response: obeys ab2 commands(6). Total: 15. 20:23 Eye Response: spontaneous(4). Verbal Response: oriented(5). Motor Response: obeys sm5 commands(6). Total: 15. Trauma Score (Adult): 18:26 Eye Response: spontaneous(1); Verbal Response: oriented(1); Motor Response: obeys ab2 commands(2); Systolic BP: > 89 mm Hg(4); Respiratory Rate: 10 to 29 per min(4); Sanders Score: 15; Trauma Score: 12 MDM: 19:17 Data reviewed: vital signs, nurses notes, lab test result(s), radiologic studies. kdr Counseling: I had a detailed discussion with the patient and/or guardian regarding: the historical points, exam findings, and any diagnostic results supporting the discharge/admit diagnosis, lab results, radiology results, the need for further work-up and treatment in the hospital. 19:25 Patient medically screened. [facility] 11/10 18:26 Order name: Basic Metabolic Panel; Complete Time: 19:09 [facility] 11/10 18:26 Order name: CBC with Diff; Complete Time: 19:09 [facility] 11/10 18:26 Order name: Protime (+inr); Complete Time: 19:09 [facility] 11/10 18:26 Order name: Ptt, Activated; Complete Time: 19:09 [facility] 11/10 18:33 Order name: Glucose, Ancillary Testing; Complete Time: 19:09 [facility] 11/10 19:53 Order name: COVID-19 SARS RT PCR (Document "Date of Onset" if Symptomatic) la1 11/10 18:26 Order name: CT Stroke Brain w/o Contrast; Complete Time: 19:09 [facility] 11/10 18:26 Order name: Stroke CXR 1 View; Complete Time: 20:04 [facility] 11/10 18:26 Order name: EKG; Complete Time: 18:27 [facility] 11/10 18:26 Order name: Accucheck; Complete Time: 18:35 [facility] 11/10 18:26 Order name: Cardiac monitoring; Complete Time: 18:35 [facility] 11/10 19:16 Order name: Head Angio CT [facility] 11/10 19:16 Order name: Neck Angio CT; Complete Time: 20:24 [facility] 11/10 18:26 Order name: EKG - Nurse/Tech; Complete Time: 18:36 [facility] 11/10 18:26 Order name: IV Saline Lock; Complete Time: 18:35 [facility] 11/10 18:26 Order name: Labs collected and sent; Complete Time: 18:36 [facility] 11/10 18:26 Order name: NPO; Complete Time: 18:56 [facility] 11/10 18:26 Order name: O2 Per Protocol; Complete Time: 19:04 [facility] 11/10 18:26 Order name: O2 Sat Monitoring; Complete Time: 18:56 [facility] 11/10 18:26 Order name: Stroke Swallow Screen; Complete Time: 18:56 7 Administered Medications: No medications were administered Disposition Summary: 11/10/21 20:31 Left Against Medical Advice Location: Home(11/10/21 20:31) jr8 Problem: new(11/10/21 20:31) jr8 Symptoms: are resolved(11/10/21 20:31) jr8 Condition: Stable(11/10/21 20:31) jr8 Diagnosis - Hypertensive urgency jr8 - Paresthesia of skin(11/10/21 20:31) jr8 Followup: jr8 - With: Private Physician - When: 1 - 2 days - Reason: Recheck today's complaints, Continuance of care, Re-evaluation by your physician Discharge Instructions: - Discharge Summary Sheet jr8 - Hypertension, Adult jr8 - Paresthesia jr8 NIH Stroke Scale - NIH Stroke Score Date: 11/10/2021 Time: 18:26 Total Score = 0 1a. Level of Consciousness (LOC) - 0(Alert) 1b. Level of Consciousness (LOC) (Month \\T\\ Age) - 0(Both) 1c. LOC Commands (Open \\T\\ Closes Eyes/Platemaker) - 0(Both) 2. Best Gaze (Lateral Gaze Paresis) - 0(Normal) 3. Visual Field Loss - 0(No visual loss) 4. Facial Palsy - 0(Normal) 5a. Left Arm: Motor (10-second hold) - 0(No drift) 5b. Right Arm: Motor (10-second hold) - 0(No drift) 6a. Left Leg: Motor (5-second hold - always test supine) - 0(No drift) 6b. Right Leg: Motor (5-second hold - always test supine) - 0(No drift) 7. Limb Ataxia (finger/nose \\T\\ heel/valencia - test with eyes open) - 0(Absent) 8. Sensory Loss (pinprick arms/legs/face) - 0(Normal) 9. Best Language: Aphasia (description/naming/reading) - 0(No aphasia) 10. Dysarthria (speech clarity - read or repeat words) - 0(Normal) 11. Extinction and Inattention (visual/tactile/auditory/spatial/personal) - 0(No abnormality) Initials: ab2 NIH Stroke Scale - NIH Stroke Score Date: 11/10/2021 Time: 18:29 Total Score = 1 1a. Level of Consciousness (LOC) - 0(Alert) 1b. Level of Consciousness (LOC) (Month \\T\\ Age) - 0(Both) 1c. LOC Commands (Open \\T\\ Closes Eyes/Platemaker) - 0(Both) 2. Best Gaze (Lateral Gaze Paresis) - 0(Normal) 3. Visual Field Loss - 0(No visual loss) 4. Facial Palsy - 0(Normal) 5a. Left Arm: Motor (10-second hold) - 0(No drift) 5b. Right Arm: Motor (10-second hold) - 0(No drift) 6a. Left Leg: Motor (5-second hold - always test supine) - 0(No drift) 6b. Right Leg: Motor (5-second hold - always test supine) - 0(No drift) 7. Limb Ataxia (finger/nose \\T\\ heel/valencia - test with eyes open) - 0(Absent) 8. Sensory Loss (pinprick arms/legs/face) - 1(Mild to moderate loss) 9. Best Language: Aphasia (description/naming/reading) - 0(No aphasia) 10. Dysarthria (speech clarity - read or repeat words) - 0(Normal) 11. Extinction and Inattention (visual/tactile/auditory/spatial/personal) - 0(No abnormality) Initials: kdr Signatures: Dispatcher [employer] EDMS Sean Baca MD MD kdr Paul Vee PA PA jr8 Kyle Freeman, COMMUNITY DEVELOPMENT WORKER-C COMMUNITY DEVELOPMENT WORKER-Cla1 Roslyn Reyes, RN RN jl7 Isabell Jhaveri RN RN ap3 Corrections: (The following items were deleted from the chart) 20:30 19:25 Observation kdr jr8 20:30 19:25 Popeye Euceda kdr jr8 20:30 19:25 Telemetry/MedSurg (observation) kdr jr8 20:30 19:25 Fair kdr jr8 20:30 19:25 new kdr jr8 20:30 19:25 are resolved kdr jr8 20:30 19:25 Standard kdr jr8 20:30 19:25 kdr jr8 20:30 19:25 Hypertensive heart disease without heart failure kdr jr8 20:30 19:25 Paresthesia of skin kdr jr8
--- NOTE | 2021-11-10 19:31 | RAD REPORT ---
EXAM DESCRIPTION: Jimbo Single View11/10/2021 6:59 pm CLINICAL HISTORY: cva COMPARISON: 2020 FINDINGS: The lungs appear clear of acute infiltrate. The heart is normal size IMPRESSION: No acute abnormalities displayed
--- NOTE | 2021-11-10 20:12 | RAD REPORT ---
EXAM DESCRIPTION: Delio Angio11/10/2021 7:53 pm CLINICAL HISTORY: Numbness COMPARISON: None TECHNIQUE: 50 cc Isovue 370 was administered intravenously. 3D MIP reconstruction performed All CT scans are performed using dose optimization technique as appropriate and may include automated exposure control or mA/KV adjustment according to patient size. FINDINGS: Artifact results in limited evaluation of a portion of the proximal right internal carotid artery. Mild plaque is present within the common and internal carotid arteries bilaterally Plaque results in a high-grade stenosis left external carotid artery. Vertebral arteries are generally codominant without significant abnormality. No dissection seen IMPRESSION: Mild plaque within common and internal carotid arteries NASCET criteria used. Mild 0-49% stenosis Moderate 50-69% stenosis Severe 70-99% stenosis
--- NOTE | 2021-11-10 20:25 | RAD REPORT ---
EXAM DESCRIPTION: CTHead angio11/10/2021 7:53 pm CLINICAL HISTORY: Numbness COMPARISON: None TECHNIQUE: CT angiogram of the head was obtained. 3D MIPS reconstruction performed. All CT scans are performed using dose optimization technique as appropriate and may include automated exposure control or mA/KV adjustment according to patient size. FINDINGS: The basilar, internal carotid, anterior cerebral, middle cerebral and posterior cerebral a rteries are normal caliber. An aneurysm is not seen. Hypoplastic A1 segment right anterior cerebral artery A significant stenosis is not noted. IMPRESSION: No significant abnormality displayed
[2021-11-10 20:39] VITALS: TEMP 98.8
[2021-11-10 20:42] VITALS: BP 144/65; O2SAT 100
--- NOTE | 2021-11-12 07:27 | EKG ---
Test Date: 2021-11-10 Test Time: 17:11:58 Reproductive Healthcare Assistant: RIVKA MEASUREMENT RESULTS: Intervals: Rate: 61 MT: 164 QRSD: 106 QT: 432 QTc: 434 Jones: P: 75 MT: 164 QRS: 76 T: -77 INTERPRETIVE STATEMENTS: Normal sinus rhythm Possible Anterior infarct, age undetermined Abnormal ECG Compared to ECG 07/22/2009 20:55:22 Myocardial infarct finding now present Sinus bradycardia no longer present Electronically Signed On 11-12-21 07:22:30 CDT by Nikolas Peterson
== END 2021-11-10 20:32 | disposition left against medical advice (07) ==
LOC: ER 17:50
DX: I16.0 Hypertensive urgency (principal); I10 Essential (primary) hypertension
CPT/HCPCS: 93005; 85025; 80048; 36415; 85610; 82947; 85730; 70496; 70498; 70450; 71045; 99285; Q9967

== ENCOUNTER 2022-05-03 15:58 | Inpatient (IN) | payer OTHER, MEDICARE ==
--- OUTSIDE RECORDS SUMMARY | 2022-05-03 16:01 | XMS REPORT | Clinical Summary ---
:1945 Author Organization [facility] MD Raines [facility] Address [address] [place] [address] Care Team Providers Name Role Phone Nia Hollis MD Unavailable Maricel Wagner MD Primary Care Provider Allergies Active [...] Overview: Right breast pain Mammography abnormal 11/05/2020 Surgical History Surgery Date Site/Laterality Comments APPENDECTOMY 08/30/1983 - 08/29/1984 BACK SURGERY 08/30/1995 - 08/29/1996 COLONOSCOPY 08/30/2018 - 08/29/2019 HYSTERECTOMY 08/30/1983 - total- ovaries 08/29/1984 removed- benign fibroid tumor CHOLECYSTECTOMY 08/30/1993 - 08/29/1994 UPPER GASTROINTESTINAL 08/30/2018 - ENDOSCOPY 08/29/2019 SKIN SURGERY 08/30/2016 - Right right hand SCC- 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 Jose Hale) SKIN SURGERY 08/30/1979 - Left Left Islam Alice noma- 08/29/1980 Dr Wray TUBAL LIGATION 08/30/1971 - 08/29/1972 Medical History Medical History Date Comments Hypertension 2005 Allergic rhinitis 1970 Gastric reflux 2000 Gastric ulcer 2019 Polyp of colon 2019 Gallstone 1994 removed Renal stone 2019 History of recurrent urinary tract 2013 infection Arthritis 1998 Malignant melanoma 1980 Left Islam Squamous cell carcinoma in situ of skin [...] HRT: 26 yrs Last Filed Vital Signs Not on file Plan of Treatment Health Maintenance Due Date Last Done Comments COVID-19 Vaccination (#1) 1945 Results Not on fileafter 05/03/2021 Insurance Payer Benefit Plan Subscriber ID Effective Phone Address Typ e / Group Dates MEDICARE MEDICARE PART [id number] 2008-Pres [phone] NOVITAS Medicare A AND B ent [id number] [place] [address] D[place] AARP-SECONDAR [id number] 2020-Pres P O BOX [employer] OF Y ONLY ent [id number] [place] [address] ([address]) [address] [place] [phone] Livier Brice Personal/Family Self 1945 [address] [place] [address] (Home) [address] [place] [phone] Care Teams Lathe Winder Relationship Specialty Start Date End Date Nia Hollis, PCP - External Referring Obstetrics/Gynecology 10/31/[address] [place] [id number] Maricel Wagner, PCP - General Surgical Oncology 11[facility]01/20 [facility] [place] [address]
--- OUTSIDE RECORDS SUMMARY | 2022-05-03 16:02 | XMS REPORT | Continuity of Care Document ---
:1945 Author Organization [facility] t Address [address] [place] [address] Care Team Providers Name Role Phone JESSICA DELGADO Primary Care Physician Unavailable Manjeet Santos Attending Clinician Unavailable SYSTEM, PROVIDER NOT IN Attending Clinician Unavailable [place] Attending Clinician [place] BROCK, Rebecca Dimas Attending Clinician CONCETTA HOPE Attending Clinician Unavailable ELENO CARTER Attending Clinician Unavailable JESSICA DELGADO Attending Clinician Unavailable RICO RAJPUT Attending Clinician Unavailable DERRICK WHITTEN Attending Clinician Unavailable Payers Payer Name Policy Type Policy Number Effective Date Expiration Date Brit caballero MEDICARE PART A [id number] 2008 AND B 00:00:00 AARP-SECONDARY [id number] 2020 ONLY 00:00:00 Problems Condition Condition Condition Status Onset Resolution Last Treating Co mments Source Name Details Category Date Date Treatment Clinician Date Mastodynia Mastodynia Disease Active Overview : Univers of right of right 3-09 Formattin ity of breast breast 00:00: g of this 00 note might be Ramona peter n from the Cancer original. 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 [place] n (disorder) (disorder) Active Problem 12/12/2021 [facility] Urinary Urinary Problem Active 2021-12-12 Me moria tract tract 04:50:30 l infectious 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) Active Problem 12/12/2021 [facility] Allergies, Adverse Reactions, Alerts Allergy Allergy Status Severity Reaction(s) Onset Inactive Treating Comm ents Source Name Type Date Date Clinician Levoflox Propensi Active 0 Pain in Metho di acin ty to 8-[address] adverse 00:00: Hospita reaction 00 l s to drug Levoflox Propensi Active Other (See 0 Pain in U nivers acin ty to Comments) 8-20 legs and ity o f adverse 00:00: arms Pain [place] reaction 00 in legs MD [facility] Family History Family Member Diagnosis Comments Start Date Stop Date Source Natural brother Colon cancer Univers ity [facility] MD Raines [facility] Natural brother Heart attack [facility] [place] MD Raines [facility] Natural brother Skin cancer [facility] [place] MD Raines [facility] Natural father Lung cancer Universit y [facility] MD Raines [facility] Natural father Cancer [facility] Maternal Heart failure [facility] MD [facility] Natural mother Melanoma [facility] MD Raines [facility] Natural mother [facility] Natural mother Skin cancer Universit y [facility] Olu son Cancer Center Natural mother Alzheimer's [facility] disease Natural sister Heart attack [facility] [place] MD [facility] Natural [facility] Natural sister Alzheimer's [facility] disease Natural sister [facility] Social History Social Habit Start Date Stop Date Quantity Comments Source History of tobacco [facility] [place] of use Jamel Raines [facility] Alcohol intake 2021-10-21 2021-10-21 Ex-drinker [facility] 00:00:00 00:00:00 (finding) Hospital Social History 2021-07-01 2021-07-01 [facility] sruthi 18:29:57 18:29:57 Cigarettes smoked 2020-11-18 2020-11-18 Univers ity of current (pack per 00:00:00 00:00:00 [place] Anthony Desai ) - Reported Cancer Ce nter Cigarette 2020-11-18 2020-11-18 University of pack-years 00:00:00 00:00:00 [place] MD Olu natarajan [facility] Tobacco use and 2020-11-18 2020-11-18 Smokeless Universit y of exposure 00:00:00 00:00:00 tobacco non-user [facility] Tobacco Comment 2020-11-18 2020-11-18 current vaping Unive rsity of 00:00:00 00:00:00 [place] MD Olu natarajan [facility] Sex Ass[birth year] At [birth year] [facility] 00:00:[facility] 00:00:00 Hospital Smoking Status Start Date Stop Date Source Ex-smoker 2019-04-25 00:00:00 2019-04-25 00:00:00 [facility] Medications Ordered Filled Start Stop Current Ordering Indication Dosage Frequency Signature Comments Components Source Medication Medication Date Date Medication? Clinician (SIG) Name Name [facility] Yes 81 mg = 1 Me moria Low Dose 4-12 tab, PO, l Aspirin 81 18:10: Daily, 0 Her peña mg oral 00 Refill(s) delayed release tablet cloNIDine Yes 0.1 mg = 1 Me moria 0.1 mg oral 4-12 tab, TAKE l tablet 17:17: 1 TABLET [place] 00 BY MOUTH TWICE DAILY ramipril 10 Yes TAKE 1 Aamir cindy mg oral 4-12 CAPSULE BY l capsule 17:17: MOUTH [place] 00 TWICE DAILY BIOTIN ORAL Yes Take by Met hodi 2-[address] 13:41: Hospita 28 l multivit-mi Yes Take by Met hodi n/iron/foli 2-[address] c/vit K1 13:41: Hospita (CENTRUM 28 l CHEWABLES ORAL) cyanocobala Yes 500ug QD Take 500 M ethodi min 2-[address] (cyanocobal 13:41: mouth Hospi ta griffin) 500 28 daily. l MCG tablet esomeprazol Yes 20mg QD Take 20 mg Methodi e (NexIUM) 2-[address] 20 MG 13:41: daily Hospita capsule 28 before l breakfast. calcium Yes Take by Methodi carbonate 2-[address] (CALCIUM 13:41: Hospita 500 ORAL) 28 l clonIDINE Yes 1{patch Q7D 1 patch Me thodi (CATAPRES-T 2-05 } once a st TS) 0.1 00:00: week. Hospita mg/24 hr 00 l ramipriL Yes 10mg QD Take 10 mg Met hodi (ALTACE) 10 2- by mouth st MG capsule 00:00: daily. Hospi ta 00 l clonIDINE Yes as needed. Me thodi (CATAPRES) 1-18 st 0.1 MG 00:00: Hospita tablet 00 l quetiapine 2020-08 Yes See Memoria 25 MG Oral 05 Instructio l Tablet 14:33: ns, Take 1 Maira nn [Seroquel] 00 tab po 1 hour prior to MRI, may repeat q 15 min. if still anxious, # 5 tab, 0 Refill(s), Pharmacy: [facility] 527, 167.64, cm, 07/01/21 13:52:00 CDT, Height, 83.636, kg, 07/01/21 13:52:00 CDT, Weight Vitamin B12 2020-08 Yes 0 Memori a 1-02 Refill(s) l 18:39: [place] 00 biotin 2020-08 Yes PO, Daily, Memor ia 1-02 0 l 18:39: Refill(s) [place] 00 Vitamin D3 2020-08 Yes 0 Memoria 1-02 Refill(s) l 18:39: [place] 00 Lorazepam 1 2020-08 Yes 1 mg = 1 Me moria MG Oral 1-02 tab, PO, l Tablet 18:37: Bedtime, 0 Maira nn 00 Refill(s) verapamil 2020-08 Yes 240 mg = 1 Me moria 240 mg oral 1-02 tab, 0 l tablet, 18:35: Refill(s) Maira nn extended 00 release lisinopril 2020-08 Yes 0 Memoria 20 mg oral 08-31 Refill(s) l tablet 18:35: [place] 00 aspirin 81 Yes 81mg Take 81 mg U nivers mg EC 3-22 by mouth ity of tablet 13:24: daily. [place] 14 [facility] cholecalcif Yes 1{tbl} Take 1 Un meera ingrid, 3-22 tablet by ity of vitamin D3, 13:04: mouth [place] (VITAMIN D3 36 twice ORAL) daily. [facility] BIOTIN ORAL Yes 1{tbl} Take 1 Un meera 3-22 tablet by ity of 13:03: mouth [place] 43 daily. MD [facility] calcium Yes 1{tbl} Take 1 Univer s carbonate 3-22 tablet by ity o f (CALCIUM 13:03: mouth [place] 500 ORAL) 43 daily. MD [facility] esomeprazol Yes 40mg Take 40 mg Univers e (NexIUM) 3-22 by mouth ity o f 40 MG 13:03: daily. [place] capsule 43 [facility] cyanocobala Yes 500ug Take 500 U nivers min 3-22 mcg by ity of (VITAMIN 13:03: mouth [place] B-12) 500 43 daily. mcg tablet [facility] multivitami Yes 1{tbl} Take 1 Un meera n/iron/foli 3-22 tablet by ity of c acid 13:03: mouth [place] (CENTRUM 43 daily. ORAL) [facility] verapamil Yes 1{tbl} Take 1 Univ ers (CALAN-SR) 3-15 tablet by ity of 240 mg CR 00:00: mouth [place] tablet 00 twice MD daily. [facility] lisinopril Yes 2{tbl} Take 2 Uni vers (PRINIVIL,Z 3-15 tablets by it y of ESTRIL) 20 00:00: mouth [place] mg tablet 00 daily. MD [facility] LORazepam Yes 1{tbl} Take 1 Univ ers (ATIVAN) 1 2-11 tablet by ity of mg tablet [place]:00[place] 00 bed[place]. [place] [facility] furosemide Yes 1{tbl} Take 1 Uni vers (LASIX) 40 1-09 tablet by ity of mg tablet 00:00: [place] 00 needed. [place] [facility] furosemide 2021- No 40mg Q2D Take 40 mg Methodi (LASIX) 40 02-[address] mg tablet 00:00: 00:00 every Hospit a 00 :00 other day. l lisinopriL 2021- No Method i (PRINIVIL) 01-09 st 10 mg 00:00: 00:00 Hospita tablet 00 :00 l captopril 2021- No Methodi (CAPOTEN) 03-11 st 50 MG 00:00: 00:00 Hospita tablet 00 :00 l verapamil Yes 240mg Q.5D Take 240 Met hodi sustained 7-[address] release 00:00: mouth 2 Hospita (CALAN-SR) 00 (two) l 240 MG SR times a tablet day. LORAZepam Yes 1mg Q.5D Take 1 mg Met hodi (ATIVAN) 1 6-[address] MG tablet 00:00: (two) Hospita 00 times a l day. Vital Signs Vital Name Observation Time Observation Value Comments Source HEIGHT 2020-11-18 12:54:56 165.5 cm WEIGHT 2020-11-18 12:54:56 83.2 kg Systolic (mm Hg) 2021-12-09 17:01:00 Aamir Mayes Diastolic (mm Hg) 2021-12-09 17:01:[facility] [place] Heart Rate 2021-12-09 17:01:00 [facility] Respitory Rate 2021-12-09 17:01:00 Lady Sullivan Height 2021-12-09 17:01:00 167.64 cm [facility] Weight 2021-12-09 17:01:00 [facility] BMI Calculated 2021-12-09 17:01:00 Lady Sullivan Systolic blood 2021-10-21 19:39:00 157 mm[Hg] [facility] pressure Diastolic blood 2021-10-21 19:39:00 72 mm[Hg] [facility] pressure Heart rate 2021-10-21 19:39:00 69 /min [facility] Body height 2021-10-21 19:39:00 167.6 cm [facility] Body weight 2021-10-21 19:39:00 81.285 kg [facility] BMI 2021-10-21 19:39:00 28.92 kg/m2 [facility] Oxygen saturation in 2021-10-21 19:39:00 95 /min [facility] Arterial blood by Pulse oximetry Body temperature 2021-09-04 18:52:00 36.28 Janeth [facility] Systolic (mm Hg) 2021-07-01 18:23:00 Aamir rial [place] Diastolic (mm Hg) 2021-07-01 18:23:00 Mem orial [place] Heart Rate 2021-07-01 18:23:00 [facility] [place] Respitory Rate 2021-07-01 18:23:00 Memori al [place] Height 2021-07-01 18:23:00 167.64 cm [facility] [place] Weight 2021-07-01 18:23:00 [facility] [place] BMI Calculated 2021-07-01 18:23:00 Memori al [place] Procedures Procedure Date / Time Performed Performing Clinician [facility] e Hysterectomy<sup>3</sup> Memoria l [place] Discectomy<sup>1</sup> [facility] [place] Gallbladder [facility] [place] operation<sup>2</sup> Plan of Care Planned Activity Planned Date Details Comments Source Future Scheduled 2022-04-29 HEPATITIS B VACCINES Met [place] [facility] Test 09:45:34 (1 of 3 - 3-dose series) [code = HEPATITIS B VACCINES (1 of 3 - 3-dose series)] Future Scheduled 2022-04-29 COVID-19 VACCINE (#1) [facility] Test 09:45:34 [code = COVID-19 VACCINE (#1)] Future Scheduled 2022-04-29 Hepatitis C screening [facility] Test 09:45:34 (procedure) [code = [id number]] Future Scheduled 2022-04-29 SHINGLES VACCINES (1 Met [facility] Test 09:45:34 of 2) [code = SHINGLES VACCINES (1 of 2)] Future Scheduled 2022-04-29 65+ PNEUMOCOCCAL [facility] Test 09:45:34 VACCINE (1 - PCV) [code = 65+ PNEUMOCOCCAL VACCINE (1 - PCV)] Future Scheduled 2022-04-29 INFLUENZA VACCINE [facility] Test 09:45:34 [code = INFLUENZA VACCINE] Future Scheduled 2022-03-04 COVID-19 Vaccination Uni [facility] Test 07:17:04 (#1) [code = COVID-19 [facility] Vacc[facility] (#1)] Center Encounters Start End Encounter Admission Attending Care Care Encounter Source Date/Time Date/Time Type Type Clinicians Facility Department ID 2022-03-16 Outpatient [facility] [id number] [facility] 11:37:00 [facility]ly [facility] [address] [facility] 2020-10-30 Outpatient SYSTEM, [facility] [id number] 16:50:00 PROVIDER Matthew dickens 2022-12-09 2022-12-09 Outpatient MHIE SHAHNAZ [id number] Memoria 13:30:00 13:30:00 03 eloy Mayes 2021-12-09 2021-12-10 Outpatient nullFlavo MNA [id number] Memoria 16:45:00 04:59:59 r Neurology 02 eloy Mayes 2021-12-09 2021-12-09 Outpatient ADAM HunterSCHRATNA [id number] 11:45:00 23:59:59 West 02 Farhad 2021-12-09 2021-12-09 Outpatient MHIE SHAHNAZ [id number] Memoria 11:45:00 11:45:00 02 eloy Mayes 2021-10-21 2021-10-21 Office [facility] 1.2.840.1 [id number] Methodi 13:40:00 14:04:47 Visit Zenia 26551.1.1 Isela [place] 3.430.2.7 Hospi ta .3.545270 l .8 2021-10-21 2021-10-21 Outpatient [facility] [id number] [place] 00:00:00 00:00:00 Isela KNUTSON i 2021-10-21 2021-10-21 Travel 1.2.840.1 [id number] Methodi 00:00:00 00:00:[address] 3.430.2.7 0.2.7.3.698 Ho spita .3.285162 084.8 l .8 2021-09-24 2021-09-26 Outside nullFlavo MNA [id number] Memoria 19:19:14 05:59:59 Medical r Neurology 00 l Records Christy Saucedaann 2021-09-24 2021-09-25 Outpatient MHMISCHER MHMISCHER [id number] 13:19:14 23:59:59 00 2021-09-04 2021-09-04 Office [facility] 1.2.840.1 [id number] Methodi 13:00:00 15:17:15 Visit Zenia 45098.1.[address] [facility] B. 3.430.2.7 Hospi ta .3.055593 l .8 2021-09-04 2021-09-04 Outpatient [facility] [id number] [place] 00:00:00 00:00:00 ZENIA, [address] 2021-09-04 2021-09-04 Travel 1.2.840.1 [id number] [id number] Methodi 00:00:00 00:00:[address] 3.430.2.7 0.2.7.3.698 Ho spita .3.505489 084.8 l .8 2021-07-29 2021-07-29 Ambulatory nullFlavo MNA [id number] Memoria 19:00:00 19:00:00 Pre-Reg r Neurology 01 l Christy Ger[place] 2021-07-29 2021-07-29 Outpatient MHIE MHIE [id number] Memoria 13:00:00 13:00:00 01 eloy Ger[place] 2021-07-29 2021-07-29 Outpatient Elsa MHMISCHER MHMISCHER [id number] 13:00:00 13:00:00 [place] 2021-07-012021-07-02 Outpatient nullFlavo MNA [id number] Memoria 18:30:00 04:59:59 r Neurology 00 l Christy Mayes 2021-07-01 2021-07-01 Outpatient ADAM Hunter [id number] 13:30:00 23:59:59 West 00 Farhad 2021-07-01 2021-07-01 Outpatient EWELINAIE EVAN [id number] Memoria 13:30:00 13:30:00 00 l [place] 2021-06-12 2021-06-12 Travel 1.2.840.1 [id number] Methodi 00:00:00 00:00:00 80413.1.1 350.1.13.43 031 3.430.2.7 0.2.7.3.698 Ho spita .3.777917 084.8 l .8 2021-03-21 2021-03-21 Outpatient HERMINIA, [facility] [id number] [place] 00:00:00 00:00:00 CONCETTA 690 Method i 2021-03-12 2021-03-12 Outpatient HERMINIA [facility] [id number] [place] 00:00:00 00:00:00 CONCETTA 935 Method i 2020-11-19 2020-11-19 Outpatient EL BRIDGES, MDA MDA [id number] 13:52:47 13:52:47 ELENO Zurita rso n 2020-11-19 2020-11-19 Outpatient EL BRIDGES, MDA MDA [id number] 12:57:15 12:57:15 ELENO Zur[place] rso n 2020-11-18 2020-11-18 Outpatient EL CHECKA, MDA MDA [id number] 12:48:38 15:06:20 JESSICA Raines so n 2020-11-18 2020-11-18 Outpatient EL CHECKA, MDA MDA [id number] 12:45:43 12:51:39 JESSICA Raines so n 2020-11-15 2020-11-15 Outpatient EL CHECKA, MDA MDA [id number] 09:07:51 09:07:51 JESSICA Raines so n 2020-11-15 2020-11-15 Outpatient EL CHECKA, MDA MDA [id number] 09:07:50 09:07:50 JESSICA Olu so n 2020-11-15 2020-11-15 Outpatient EL CHECKA, MDA MDA [id number] 09:07:48 09:07:48 JESSICA Olu so n 2020-11-15 2020-11-15 Outpatient EL CHECKA, MDA MDA [id number] 09:07:46 09:07:46 JESSICA Olu so n 2020-11-15 2020-11-15 Outpatient EL CHECKA, MDA MDA [id number] 09:07:45 09:07:45 JESSICA Olu so n 2020-11-14 2020-11-14 Outpatient EL CHECKA, MDA MDA [id number] MD 12:39:47 13:15:08 JESSICA Olu so n 2020-04-22 2020-04-22 Outpatient REGULO, JOHNATHONIE [facility] [id number] [place] 00:00:00 00:00:[address] 2020-04-22 2020-04-22 Outpatient REGULO, JOHNATHONIE [facility] [id number] [place] 00:00:00 00:00:[address] 2020-04-22 2020-04-22 Outpatient REGULO, RICO [facility] [id number] [place] 00:00:00 00:00:[address] 2020-04-15 2020-04-15 Outpatient REGULO, RICO [facility] [id number] [place] 00:00:00 00:00:[address] 2020-03-26 2020-03-26 Outpatient REGULO, JOHNATHONIE [facility] [id number] [place] 00:00:00 00:00:[address] 2020-03-08 2020-03-08 Outpatient FISH [facility] [id number] [place] 00:00:00 00:00:00 DERRICK [address] 2019-11-14 2019-11-14 Outpatient FISH, [facility] [id number] [place] 00:00:00 00:00:00 DERRICK [address] 2019-11-06 2019-11-06 Outpatient FISH [facility] [id number] [place] 00:00:00 00:00:00 DERRICK [address] Results This patient has no known results.
[2022-05-03] MEDS ORDERED: ASPIRIN 81 MG CHEWABLE TABLET ONE (16:39)
[2022-05-03] MEDS ORDERED: METOPROLOL TARTRATE 5 MG/5 ML INJ IV ONE (16:39)
[2022-05-03 16:44] LABS: Absolute Lymphocytes (CBC) 2.6 K/uL (0.7-4.9); Hematocrit 45.7 % (36.0-45.0); Lymphocytes % 24.7 % (15.3-44.8); MCV 85.6 fL (80-100); MPV 9.1 fL (7.6-11.3); RBC Red Blood Cell Count 5.34 M/uL (3.86-4.86)
[2022-05-03 16:51] LABS: Protime INR 1.08
--- NOTE | 2022-05-03 17:06 | RAD REPORT ---
EXAM DESCRIPTION: Jimbo Single View05/03/2022 4:57 pm CLINICAL HISTORY: Shortness of breath COMPARISON: December 2021 FINDINGS: Lungs are mildly hyperaerated. The lungs appear clear of acute infiltrate. The heart is normal size IMPRESSION: No acute abnormalities displayed
[2022-05-03 17:07] LABS: Albumin 3.9 g/dL (3.4-5.0); Bilirubin Direct 0.1 mg/dL (0-0.2); Bilirubin Total 0.6 mg/dL (0.2-1.0); Protein, Total 7.8 g/dL (6.4-8.2); Troponin High Sensitivity 45.2 pg/mL (<58.9)
[2022-05-03] MEDS ORDERED: NA CHLORIDE 0.9% 500 ML ONE (17:15)
[2022-05-03 17:32] LABS: Magnesium 2.2 mg/dL (1.8-2.4); Potassium 3.1 mmol/L (3.5-5.1)
[2022-05-03] MEDS ORDERED: POTASSIUM 25 MEQ EFFERV TAB ONE (18:03)
[2022-05-03] MEDS ORDERED: METOPROLOL TAR 25 MG TAB ONE (18:03)
--- NOTE | 2022-05-03 21:27 | EDPHYS ---
Physician Documentation [facility] Name: Livier Brice Age: 77 yrs Sex: Female : 1945 Arrival Date: 05/03/2022 Time: 15:59 Bed 15 Private MD: ED Physician Sean Baca HPI: 05/03 16:30 This 77 yrs old Female presents to ER via Ambulatory with complaints of Blood Pressure cp Problem, Shortness Of Breath, Irregular Pulse. 16:30 The patient has shortness of breath at rest. cp 16:30 Onset: The symptoms/episode began/occurred today, 2 hour(s) ago. Duration: The symptoms cp are continuous, and are steadily getting worse. 16:30 Associated signs and symptoms: Pertinent positives: shortness of breath, Pertinent cp negatives: productive cough, fever, active vomiting. 16:30 Severity of symptoms: in the emergency department the symptoms are unchanged despite cp home interventions. Historical: - Allergies: 16:08 No Known Allergies; iw - Home Meds: 16:07 clonidine HCl 0.1 mg oral tab once daily [Active]; verapamil Oral [Active]; Ramipril 20 iw Oral once daily [Active]; hydrochlorothiazide 12.5 mg Oral tab 1 tab 2 times per day [Active]; - PMHx: 16:07 Hypertensive disorder; iw - Immunization history:: Client reports receiving the 2nd dose of the Covid vaccine. - Social history:: Smoking status: Patient denies any tobacco usage or history of. ROS: 16:33 Constitutional: Negative for body aches, chills, fever, poor PO intake. cp 16:33 Cardiovascular: Positive for palpitations. cp 16:33 Respiratory: Positive for shortness of breath. 16:33 Eyes: Negative for injury, pain, redness, and discharge. cp 16:33 ENT: Negative for drainage from ear(s), ear pain, sore throat, difficulty swallowing, difficulty handling secretions. 16:33 Abdomen/GI: Negative for abdominal pain, diarrhea, constipation, active vomiting. 16:33 Neuro: Negative for altered mental status, dizziness, headache, loss of consciousness, syncope, weakness. 16:33 All other systems are negative. Exam: 16:22 ECG was reviewed by the Attending Physician. cp 16:35 Constitutional: The patient appears in no acute distress, alert, awake, cp non-diaphoretic, non-toxic, well developed, well nourished, uncomfortable. 16:35 Head/Face: Normocephalic, atraumatic. cp 16:35 Eyes: Periorbital structures: appear normal, Conjunctiva: normal, no exudate, no injection, Sclera: no appreciated abnormality, Lids and lashes: appear normal, bilaterally. 16:35 ENT: External ear(s): are unremarkable, Nose: is normal, Mouth: Lips: moist, Oral mucosa: pink and intact, moist, Posterior pharynx: Airway: no evidence of obstruction, patent, swelling, is not appreciated, erythema, is not appreciated, exudate, is not appreciated. 16:35 Neck: ROM/movement: is normal, is supple, without pain, no range of motions limitations. 16:35 Chest/axilla: Inspection: normal, Palpation: is normal, no crepitus, no tenderness. 16:35 Cardiovascular: Rate: tachycardic, Rhythm: regular, Edema: is not appreciated, JVD: is not appreciated. 16:35 Respiratory: the patient does not display signs of respiratory distress, Respirations: labored breathing, that is mild, Breath sounds: are clear throughout, no decreased breath sounds, no stridor, no wheezing. 16:35 Abdomen/GI: Inspection: abdomen appears normal, Palpation: abdomen is soft and non-tender, in all quadrants. 16:35 Back: pain, is absent, ROM is normal. 16:35 Neuro: Orientation: to person, place \T\ time. Mentation: is normal, Motor: moves all fours, strength is normal, Sensation: is normal. 17:52 ECG was reviewed by the Attending Physician. cp 20:42 ECG was reviewed by the Attending Physician. cp Vital Signs: 16:08 BP 138 / 87; Pulse 139; Resp 18; Temp 98.1(O); Pulse Ox 97% on R/A; Weight 80.74 kg; iw Height 5 ft. 6 in. (167.64 cm); 17:12 BP 103 / 70; Pulse 88; Resp 22; Pulse Ox 98% ; bp 18:22 BP 141 / 69; Pulse 60; Resp 19; Pulse Ox 97% ; bp 19:10 BP 145 / 72; Pulse 61; Resp 18 S; Pulse Ox 98% on R/A; as6 20:22 BP 137 / 63; Pulse 59; Resp 20 S; Pulse Ox 97% on R/A; as6 21:14 BP 135 / 58; Pulse 59; Resp 18 S; Pulse Ox 98% on R/A; as6 22:51 BP 143 / 56; Pulse 55; Resp 21 S; Pulse Ox 96% on R/A; as6 16:08 Body Mass Index 28.73 (80.74 kg, 167.64 cm) iw MDM: 16:20 Patient medically screened. cp 17:00 Differential diagnosis: Anemia CHF exacerbation, pneumonia, Pneumothorax pulmonary cp edema, Pulmonary Embolism. 21:20 Data reviewed: vital signs, nurses notes, lab test result(s), EKG, radiologic studies, cp plain films. 21:20 Test interpretation: by ED physician or midlevel provider: ECG, plain radiologic cp studies. Counseling: I had a detailed discussion with the patient and/or guardian regarding: the historical points, exam findings, and any diagnostic results supporting the discharge/admit diagnosis, lab results, radiology results, the need for further work-up and treatment in the hospital. Response to treatment: the patient's symptoms have markedly improved after treatment. 21:25 Physician consultation: Kyle Freeman was contacted at 21:25, regarding admission, to the telemetry unit. patient's condition. 05/03 16:20 Order name: Basic Metabolic Panel; Complete Time: 17:35 cp / 17:36 Interpretation: Normal except: K 3.1; GLUC 160; GFR 54. cp 05/03 16:20 Order name: CBC with Diff; Complete Time: 17:15 cp 05/03 17:15 Interpretation: Normal except: WBC 10.60; RBC 5.34; HGB 15.2; HCT 45.7; PLT 254. cp 05/03 16:20 Order name: LFT's; Complete Time: 17:35 cp /04 16:20 Order name: Magnesium; Complete Time: 17:35 cp / 16:20 Order name: NT PRO-BNP; Complete Time: 17:35 cp / 16:20 Order name: PT-INR; Complete Time: 17:15 cp 05/03 16:20 Order name: Troponin HS; Complete Time: 17:35 cp / 16:20 Order name: XRAY Chest (1 view); Complete Time: 17:15 cp 05/03 20:11 Order name: Troponin HS; Complete Time: 21:17 cp 05/03 21:28 Order name: SARS RAPID; Complete Time: 22:43 as6 05/03 22:43 Interpretation: Reviewed. cp 05/03 16:20 Order name: EKG; Complete Time: 16:21 cp 05/03 16:20 Order name: Cardiac monitoring; Complete Time: 16:36 cp 05/03 16:20 Order name: EKG - Nurse/Tech; Complete Time: 16:36 cp 05/03 16:20 Order name: IV Saline Lock; Complete Time: 16:36 cp 05/03 16:20 Order name: Labs collected and sent; Complete Time: 16:36 cp 05/03 16:20 Order name: O2 Per Protocol; Complete Time: 16:36 cp 05/03 16:20 Order name: O2 Sat Monitoring; Complete Time: 16:36 cp 05/03 17:36 Order name: EKG; Complete Time: 17:37 cp 05/03 17:36 Order name: EKG - Nurse/Tech; Complete Time: 17:49 cp 05/03 20:11 Order name: EKG - Nurse/Tech; Complete Time: 20:48 cp EC:22 Rate is 139 beats/min. Rhythm is regular. QRS interval is prolonged at 110 msec. QT cp interval is normal. T waves are Inverted in leads II, III, aVF. Interpreted by me. Reviewed by me. 17:52 Rate is 56 beats/min. Rhythm is regular. GA interval is normal. QRS interval is normal. cp QT interval is normal. T waves are Inverted in lead aVF. Interpreted by me. Reviewed by me. 20:42 Rate is 61 beats/min. Rhythm is regular. GA interval is normal. QRS interval is cp prolonged at 102 msec. QT interval is normal. T waves are Inverted in leads I, II, III, aVF, V4, V5, V6. Interpreted by me. Reviewed by me. Administered Medications: 16:45 Drug: Metoprolol 5 mg Route: IVP; Site: right antecubital; bp 16:45 Drug: Aspirin Chewable Tablet 324 mg Route: PO; bp 17:09 Follow up: Response: No adverse reaction bp 17:00 Drug: Metoprolol 5 mg Route: IVP; Site: right antecubital; bp 17:49 Follow up: Response: Marked relief of symptoms bp 17:08 Drug: NS 0.9% 500 ml Route: IV; Rate: bolus; Site: right antecubital; bp 23:15 Follow up: Response: No adverse reaction; IV Status: Completed infusion; IV Intake: as6 500ml 17:30 Drug: Metoprolol 25 mg Route: PO; bp 23:15 Follow up: Response: No adverse reaction as6 17:50 Drug: Potassium Effervescent Tablet 50 mEq Route: PO; bp 23:15 Follow up: Response: No adverse reaction as6 21:41 Drug: Lovenox (enoxaparin) 1 mg/kg Route: Sub-Q; Site: right lower abdomen; as6 23:15 Follow up: Response: No adverse reaction as6 Disposition: 05/04 07:07 Co-signature as Attending Physician, Sean Baca MD I agree with the assessment and kdr plan of care. Disposition Summary: 05/03/22 21:27 Hospitalization Ordered Hospitalization Status: [facility] Condition: Stable cp Problem: new cp Symptoms: have improved cp Bed/Room Type: Standard cp Provider: Jevon Merritt(05/03/22 22:02) la1 Room Assignment: [facility](05/03/22 23:07) Diagnosis - Tachycardia, unspecified cp - Chest pain, unspecified cp Forms: - Medication Reconciliation Form cp - SBAR form cp Signatures: Dispatcher [employer] EDSean Gonzalez MD MD [facility] Xuan Dee, ARUN DIAS Kyle Freeman, SCRAP BUNCH MAKER-C SCRAP BUNCH MAKER-Cla1 Oni Leahy PA PA cp Marge Ball RN RN cg Anand Goetz RN RN bp Slawson, Ashby, RN RN as6 Corrections: (The following items were deleted from the chart) 05/03 17:14 17:11 Constitutional: The patient appears in no acute distress, alert, awake, cp non-diaphoretic, non-toxic, well developed, well nourished, cp 17:14 17:11 Head/Face: Normocephalic, atraumatic. cp cp 17:14 17:11 Eyes: Periorbital structures: appear normal, Conjunctiva: normal, no exudate, no cp injection, Sclera: no appreciated abnormality, Lids and lashes: appear normal, bilaterally, cp 17:14 17:11 ENT: External ear(s): are unremarkable, Nose: is normal, Mouth: Lips: moist, Oral cp mucosa: pink and intact, moist, Posterior pharynx: Airway: no evidence of obstruction, patent, swelling, is not appreciated, erythema, is not appreciated, exudate, is not appreciated, cp 17:14 17:11 Chest/axilla: Inspection: normal, Palpation: is normal, no crepitus, no cp tenderness, cp 17:14 17:11 Cardiovascular: Rate: normal, Rhythm: regular, Edema: is not appreciated, JVD: is cp not appreciated, cp 17:14 17:11 Respiratory: the patient does not display signs of respiratory distress, cp Respirations: normal, no use of accessory muscles, no retractions, labored breathing, is not present, Breath sounds: are clear throughout, no decreased breath sounds, no stridor, no wheezing, cp 17:14 17:11 Abdomen/GI: Inspection: distension, that is mild, Bowel sounds: active, all cp quadrants, Palpation: soft, in all quadrants, moderate abdominal tenderness, in all quadrants, rebound tenderness, is not appreciated, involuntary guarding, is not appreciated, cp 17:14 17:11 Back: CVA tenderness, is absent, cp cp 17:14 17:11 Skin: cellulitis, is not appreciated, no rash present. cp cp 17:14 17:11 Neuro: Orientation: to person, place \T\ time. Mentation: is normal, Motor: moves cp all fours, strength is normal, Sensation: is normal, cp 22:02 21:27 Kyle Freeman cp la1 22:47 21:27 cp cg 23:07 22:47 417 cg cg 05/04 01:05/03 17:40 ECG was reviewed by the Attending Physician. cp cp 05/04 01:04 05/03 17:40 Rate is 139 beats/min. Rhythm is regular. QRS interval is prolonged at 110 cp msec. QT interval is normal. T waves are Inverted in leads II, III, aVF. Interpreted by me. Reviewed by me. cp
--- NOTE | 2022-05-03 21:27 | ER ---
Nurse's Notes [facility] Name: Livier Brice Age: 77 yrs Sex: Female : 1945 Arrival Date: 05/03/2022 Time: 15:59 Bed 15 Private MD: Diagnosis: Tachycardia, unspecified;Chest pain, unspecified Presentation: 05/03 16:05 Chief complaint: Patient states: my pulse was 130 at home, i feel SOB, I vomited this iw morning , no fever, reports very mild pain in chest , they gave me two more BP medicines , I haven't taken them yet, I am taking clonidine and I'm trying to taper off it. Coronavirus screen: At this time, the client does not indicate any symptoms associated with coronavirus-19. Ebola Screen: Patient negative for fever greater than or equal to 101.5 degrees Fahrenheit, and additional compatible Ebola Virus Disease symptoms Patient denies exposure to infectious person. Patient denies travel to an Ebola-affected area in the 21 days before illness onset. No symptoms or risks identified at this time. Initial Sepsis Screen: Does the patient meet any 2 criteria? No. Patient's initial sepsis screen is negative. Does the patient have a suspected source of infection? No. Patient's initial sepsis screen is negative. Risk Assessment: Do you want to hurt yourself or someone else? Patient reports no desire to harm self or others. Onset of symptoms was May 03, 2022. 16:05 Method Of Arrival: Ambulatory iw 16:05 Acuity: MARY JANE 2 iw Triage Assessment: 16:10 General: Appears in no apparent distress. comfortable, Behavior is calm, cooperative, bp appropriate for age. Pain: Denies pain. EENT: No deficits noted. Neuro: No deficits noted. Cardiovascular: Rhythm is sinus tachycardia. Respiratory: Reports shortness of breath Onset: The symptoms/episode began/occurred this morning, the patient has mild shortness of breath. GI: No signs and/or symptoms were reported involving the gastrointestinal system. : No signs and/or symptoms were reported regarding the genitourinary system. Derm: No deficits noted. Musculoskeletal: No deficits noted. Historical: - Allergies: 16:08 No Known Allergies; iw - Home Meds: 16:07 clonidine HCl 0.1 mg oral tab once daily [Active]; verapamil Oral [Active]; Ramipril 20 iw Oral once daily [Active]; hydrochlorothiazide 12.5 mg Oral tab 1 tab 2 times per day [Active]; - PMHx: 16:07 Hypertensive disorder; iw - Immunization history:: Client reports receiving the 2nd dose of the Covid vaccine. - Social history:: Smoking status: Patient denies any tobacco usage or history of. Screenin:10 Abuse screen: Denies threats or abuse. Denies injuries from another. Nutritional bp screening: No deficits noted. Tuberculosis screening: No symptoms or risk factors identified. Fall Risk None identified. Assessment: 16:10 General: SEE TRIAGE NOTE. bp 17:11 Reassessment: No changes from previously documented assessment. Patient states symptoms bp have improved. Cardiovascular: Rhythm is sinus rhythm. Respiratory: Airway is patent Respiratory effort is even, unlabored, Breath sounds are clear bilaterally. 18:22 Reassessment: Patient appears in no apparent distress at this time. Patient states bp symptoms have improved. Vital Signs: 16:08 BP 138 / 87; Pulse 139; Resp 18; Temp 98.1(O); Pulse Ox 97% on R/A; Weight 80.74 kg; iw Height 5 ft. 6 in. (167.64 cm); 17:12 BP 103 / 70; Pulse 88; Resp 22; Pulse Ox 98% ; bp 18:22 BP 141 / 69; Pulse 60; Resp 19; Pulse Ox 97% ; bp 19:10 BP 145 / 72; Pulse 61; Resp 18 S; Pulse Ox 98% on R/A; as6 20:22 BP 137 / 63; Pulse 59; Resp 20 S; Pulse Ox 97% on R/A; as6 21:14 BP 135 / 58; Pulse 59; Resp 18 S; Pulse Ox 98% on R/A; as6 22:51 BP 143 / 56; Pulse 55; Resp 21 S; Pulse Ox 96% on R/A; as6 16:08 Body Mass Index 28.73 (80.74 kg, 167.64 cm) iw ED Course: 15:59 Patient arrived in ED. as 16:07 Triage completed. iw 16:08 Arm band placed on. iw 16:10 Patient has correct armband on for positive identification. Bed in low position. Call bp light in reach. Side rails up X2. 16:13 Oni Leahy PA is PHCP. cp 16:13 Sean Baca MD is Attending Physician. cp 16:15 Inserted saline lock: 20 gauge in right antecubital area, using aseptic technique. bp Blood collected. 16:17 Anand Goetz, ARUN is Primary Nurse. bp 16:59 XRAY Chest (1 view) In Process Unspecified. EDMS 19:02 Primary Nurse role handed off by Anand oGetz RN as6 19:02 Sonu Martini RN is Primary Nurse. as6 21:26 Kyle Freeman is Hospitalizing Provider. cp 21:41 SARS RAPID Sent. as6 22:02 Jevon Merritt MD is Hospitalizing Provider. la1 23:14 No provider procedures requiring assistance completed. Patient admitted, IV remains in as6 place. Administered Medications: 16:45 Drug: Metoprolol 5 mg Route: IVP; Site: right antecubital; bp 16:45 Drug: Aspirin Chewable Tablet 324 mg Route: PO; bp 17:09 Follow up: Response: No adverse reaction bp 17:00 Drug: Metoprolol 5 mg Route: IVP; Site: right antecubital; bp 17:49 Follow up: Response: Marked relief of symptoms bp 17:08 Drug: NS 0.9% 500 ml Route: IV; Rate: bolus; Site: right antecubital; bp 23:15 Follow up: Response: No adverse reaction; IV Status: Completed infusion; IV Intake: as6 500ml 17:30 Drug: Metoprolol 25 mg Route: PO; bp 23:15 Follow up: Response: No adverse reaction as6 17:50 Drug: Potassium Effervescent Tablet 50 mEq Route: PO; bp 23:15 Follow up: Response: No adverse reaction as6 21:41 Drug: Lovenox (enoxaparin) 1 mg/kg Route: Sub-Q; Site: right lower abdomen; as6 23:15 Follow up: Response: No adverse reaction as6 Medication: 23:15 VIS not applicable for this client. as6 Intake: 23:15 IV: 500ml; Total: 500ml. as6 Outcome: 21:27 Decision to Hospitalize by Provider. cp 23:14 Admitted to Tele accompanied by tech, via wheelchair, room 419, with chart. as6 23:14 Condition: stable 23:14 Instructed on the need for admit. 23:15 Patient left the ED. as6 Signatures: Dispatcher [employer] Nazanin Macdonald Irene, RN RN iw Kyle Freeman, DENTAL HYGIENE PROFESSOR-C DENTAL HYGIENE PROFESSOR-Cla1 Oni Leahy PA PA cp Peltier, Brian, RN RN bp Sonu Martini RN RN as6 Corrections: (The following items were deleted from the chart) 16:13 16:08 BP 138 / 87; Pulse 139bpm; Resp 18bpm; Pulse Ox 97% RA; 80.74 kg; Height 5 ft. 6 iw in.; BMI: 28.7; iw
[2022-05-03] MEDS ORDERED: ENOXAPARIN 80 MG/0.8 ML SQ ONE (21:41)
[2022-05-03 22:13] LABS: SARS-CoV-2 Antigen Rapid Res Negative (Negative)
[2022-05-03] MEDS ORDERED: NITROGLYCERIN 1 GM PKT TD ONE (22:43)
[2022-05-03] MEDS ORDERED: IPRATROPIUM BROM 0.5MG/2.5ML ONE (22:44)
[2022-05-03] MEDS ORDERED: FAMOTIDINE 20 MG/2 ML VIAL IV ONE (22:44)
[2022-05-03] MEDS ORDERED: LEVALBUTEROL 1.25 MG/3 ML NEB ONE (22:44)
--- NOTE | 2022-05-03 22:47 | P.HP ---
Certification for Inpatient Patient admitted to: Inpatient With expected LOS: >2 Midnights Patient will require the following post-hospital care: None Practitioner: I am a practitioner with admitting privileges, knowledge of patient current condition, hospital course, and medical plan of care. Services: Services provided to patient in accordance with Admission requirements found in Title 42 Section 412.3 of the Code of Federal Regulations Patient History Date of Service: 05/03/22 Reason for admission: NSTEMI, near syncope History of Present Illness: 77-year-old female with history of hypertension presents emergency department for near syncope, tachycardia. She reports that while preparing breakfast this morning she became diaphoretic, nauseous, lightheaded almost passed out and vomited. After that she went to sleep, upon waking up was not feeling well and checked her blood pressure and heart rate found her heart rate was in the 130s she presented to the emergency department for evaluation. Upon arrival to the emergency department patient was tachycardic with a rate of 139 appeared to be sinus tachycardia she was given IV Lopressor which she did respond to. Labs were significant for potassium of 3.1 initial troponin 45.2-second opponent 60.7 BNP 630 chest x-ray negative for acute findings currently normal sinus rhythm rate of 60. Patient reports she is currently being weaned off of her clonidine for hypertension. Will admit patient for further evaluation and management of NSTEMI, near syncope. - Past Medical/Surgical History -: hypertension -: Cholecystectomy -: Back surgeries -: Hysterectomy Psychosocial/ Personal History: Patient lives at home with her - Family History Mother -: Cancer Father -: Cancer Brother -: Heart disease Sister -: Heart disease - Social History Smoking Status: Never smoker Alcohol use: No CD- Drugs: No Caffeine use: Yes Place of Residence: Home Review of Systems 10-point ROS is otherwise unremarkable Cardiovascular: Palpitations, Light Headedness, Other (near syncope, diaphoresis), As per HPI Gastrointestinal: Nausea, Vomiting Physical Examination - Physical Exam General: Alert, In no apparent distress, Oriented x3 HEENT: Atraumatic, PERRLA, Mucous membr. moist/pink, EOMI, Sclerae nonicteric Neck: Supple, 2+ carotid pulse no bruit, No LAD, Without JVD or thyroid abnormality Respiratory: Clear to auscultation bilaterally, Normal air movement Cardiovascular: Regular rate/rhythm, Normal S1 S2 Capillary refill: <2 Seconds Gastrointestinal: Normal bowel sounds, No tenderness Musculoskeletal: No tenderness Integumentary: No rashes Neurological: Normal speech, Normal strength at 5/5 x4 extr, Normal tone, Normal affect - Studies Laboratory Data (last 24 hrs) 05/03/22 16:34: PT 11.9, INR 1.08 05/03/22 16:34: WBC 10.60 D, Hgb 15.2 H, Hct 45.7 H D, Plt Count 254 D 05/03/22 16:34: Sodium 137, Potassium 3.1 L, BUN 17, Creatinine 1.05, Glucose 160 H, Magnesium 2.2, Total Bilirubin 0.6, AST 19, ALT 22, Alkaline Phosphatase 73 Assessment and Plan - Plan Assessment: NSTEMI/near syncope Hypertension Hypokalemia Plan: NSTEMI/near syncope: Patient presented with tachyarrhythmia appear to be sinus tachycardia responded well to beta-blockers, troponin and near syncope possibly related to demand ischemia/tachycardia, she is currently tapering off of clonidine. Second troponin mildly elevated covered with Lovenox, aspirin. We will monitor on telemetry, trend troponins, cardiology consult, echocardiogram ordered. Cover with aspirin, statin, beta dulce. Pt had near syncopal event at home as well. Hypertension: Continue metoprolol, appreciate further recommendations from cardiology Hypokalemia: replaced in ED, protocol in place DVT PPX: Therapeutic Lovenox Code status: Full Discharge Plan: Home Plan to discharge in: 48 Hours - Advance Directives Does patient have a Living Will: No Does patient have a Durable POA for Healthcare: No - Code Status/Comfort Care Code Status Assessed: Yes (Full code) Critical Care: No Time Spent Managing Pts Care (In Minutes): 70
[2022-05-03] MEDS ORDERED: CEFTRIAXONE 1000 MG/VIAL ONE (23:33)
[2022-05-03] MEDS ORDERED: LORAZEPAM 1 MG TABLET PO PRN (23:50)
[2022-05-03] MEDS ORDERED: ACETAMINOPHEN 500 MG TAB PO PRN (23:50)
[2022-05-03] MEDS ORDERED: ONDANSETRON 4 MG/2 ML VIAL IV PRN (23:50)
[2022-05-04 00:23] VITALS: O2SAT 97
[2022-05-04 03:33] VITALS: BMI 28.7
[2022-05-04] MEDS ORDERED: METOPROLOL TAR 25 MG TAB PO SCH (06:00)
[2022-05-04 06:14] LABS: Lymphocytes % 34.8 % (15.3-44.8); MCV 86.1 fL (80-100); RBC Red Blood Cell Count 4.65 M/uL (3.86-4.86)
[2022-05-04] MEDS ORDERED: ramipriL 5 MG CAP PO ONE (06:28)
[2022-05-04] MEDS ORDERED: hydroCHLOROthiazide 12.5 MG CAP PO ONE (06:29)
[2022-05-04 06:38] LABS: Albumin 3.3 g/dL (3.4-5.0); Bilirubin Total 0.5 mg/dL (0.2-1.0); Magnesium 2.2 mg/dL (1.8-2.4); Potassium 3.4 mmol/L (3.5-5.1); Protein, Total 6.6 g/dL (6.4-8.2); Thyroid Stimulating Hormone 2.54 uIU/mL (0.360-3.740); Troponin High Sensitivity 43.4 pg/mL (<58.9)
[2022-05-04] MEDS ORDERED: PNEUMOCOCCAL VACCINE 0.5 ML IMVAC ONE (08:00)
[2022-05-04] MEDS ORDERED: ENOXAPARIN 80 MG/0.8 ML SQ SCH (09:00)
[2022-05-04] MEDS ORDERED: ASPIRIN EC 81 MG TAB PO SCH (09:00)
--- NOTE | 2022-05-04 11:31 | EKG ---
Test Date: 2022-05-03 Test Time: 17:44:42 Learning Developer: JORDEN MEASUREMENT RESULTS: Intervals: Rate: 59 LA: 176 QRSD: 100 QT: 452 QTc: 447 Varney: P: 58 LA: 176 QRS: 52 T: 251 INTERPRETIVE STATEMENTS: Sinus bradycardia ST & T wave abnormality, consider lateral ischemia Abnormal ECG Compared to ECG 05/03/2022 16:17:08 Possible ischemia now present Supraventricular tachycardia no longer present ST (T wave) deviation still present Electronically Signed On 05-04-22 11:30:42 CDT by Nikolas Peterson
--- NOTE | 2022-05-04 11:31 | EKG ---
Test Date: 2022-05-03 Test Time: 16:17:08 Corrective [employer] Manual [employer] Therapist: JORDEN MEASUREMENT RESULTS: Intervals: Rate: 139 MO: QRSD: 110 QT: 350 QTc: 532 [place]: P: MO: QRS: 55 T: 243 INTERPRETIVE STATEMENTS: Supraventricular tachycardia Marked ST abnormality, possible inferolateral subendocardial injury Abnormal ECG Compared to ECG 11/10/2021 17:11:58 ST (T wave) deviation now present Sinus rhythm no longer present Myocardial infarct finding no longer present Electronically Signed On 05-04-22 11:30:46 CDT by Nikolas Peterson
[2022-05-04] MEDS ORDERED: lisinopriL 20 MG TAB PO SCH (12:00)
[2022-05-04 12:15] VITALS: BP 163/70; TEMP 96.9
--- NOTE | 2022-05-04 12:33 | P.DS ---
Admission Date: 05/03/22 Discharge Date: 05/04/22 Disposition: ROUTINE DISCHARGE Discharge Condition: GOOD Reason for Admission: NSTEMI, near syncope Consultations: Cardiology, recommend outpt follow up with her welt pocket machine operator Dr Mcelroy. Brief History of Present Illness: 7-year-old female with history of hypertension presents emergency department for near syncope, tachycardia. She reports that while preparing breakfast this morning she became diaphoretic, nauseous, lightheaded almost passed out and vomited. After that she went to sleep, upon waking up was not feeling well and checked her blood pressure and heart rate found her heart rate was in the 130s she presented to the emergency department for evaluation. Upon arrival to the emergency department patient was tachycardic with a rate of 139 appeared to be sinus tachycardia she was given IV Lopressor which she did respond to. Labs were significant for potassium of 3.1 initial troponin 45.2-second opponent 60.7 BNP 630 chest x-ray negative for acute findings currently normal sinus rhythm rate of 60. Patient reports she is currently being weaned off of her clonidine for hypertension. Will admit patient for further evaluation and management of NSTEMI, near syncope. Hospital Course: Patient responded well to intervention with blood pressure control medication of ramipril, hydrochlorothiazide and newly added metoprolol. She reported having been on a weaning protocol for clonidine as per outpatient nephrology/hypertension specialist. She was noted to have significantly low pulse which responded to metoprolol dose IV and also p.o. She will continue this dose pending follow-up with outpatient welt pocket machine operator and nephrology/hypertension specialist. Troponin trend while on admission was not significantly concerning. Other labs were not overtly concerning however she did have hypokalemia which she responded well to repletion. Vital Signs/Physical Exam: Temp Pulse Resp BP Pulse Ox 96.9 F 61 18 163/70 H 95 05/04/22 12:00 05/04/22 12:00 05/04/22 12:00 05/04/22 12:00 05/04/22 12:00 General: Alert, Oriented x3 HEENT: Atraumatic, Normocephalic Neck: Supple Respiratory: Normal air movement Cardiovascular: Regular rate/rhythm, Normal S1 S2 Gastrointestinal: Soft and benign Musculoskeletal: No swelling Neurological: Normal speech, Normal strength at 5/5 x4 extr Laboratory Data at Discharge: WBC 8.70 K/uL (4.3-10.9) D 05/04/22 05:19 Hgb 13.5 g/dL (12.0-15.0) 05/04/22 05:19 Hct 40.0 % (36.0-45.0) 05/04/22 05:19 Plt Count 194 K/uL (152-406) D 05/04/22 05:19 PT 11.9 SECONDS (9.5-12.5) 05/03/22 16:34 INR 1.08 05/03/22 16:34 Sodium 139 mmol/L (136-145) 05/04/22 05:19 Potassium 3.4 mmol/L (3.5-5.1) L 05/04/22 05:19 BUN 19 mg/dL (7-18) H 05/04/22 05:19 Creatinine 0.79 mg/dL (0.55-1.3) 05/04/22 05:19 Glucose 103 mg/dL (74-106) 05/04/22 05:19 Magnesium 2.2 mg/dL (1.8-2.4) 05/04/22 05:19 Total Bilirubin 0.5 mg/dL (0.2-1.0) 05/04/22 05:19 AST 14 U/L (15-37) L 05/04/22 05:19 ALT 18 U/L (12-78) 05/04/22 05:19 Alkaline Phosphatase 61 U/L (45-117) 05/04/22 05:19 Triglycerides 316 mg/dL (<150) H 05/04/22 05:19 Cholesterol 189 mg/dL (<200) 05/04/22 05:19 HDL Cholesterol 33 mg/dL (40-60) L 05/04/22 05:19 Cholesterol/HDL Ratio 5.73 05/04/22 05:19 Home Medications: Clonidine HCl [Clonidine HCl ER] 0.1 mg PO Q8H PRN 05/03/22 LORazepam [Lorazepam] 1 mg PO BEDTIME 05/03/22 Ramipril [Altace] 10 mg PO DAILY 05/03/22 Verapamil HCl [Verapamil ER] 240 mg PO BEDTIME 05/03/22 hydroCHLOROthiazide [Hydrochlorothiazide] 12.5 mg PO DAILY 09/04/22 Diet: AHA Activity: Ad rufus Followup: NONE,NONE [Primary Care Provider] -
[2022-05-04] MEDS ORDERED: ATORVASTATIN 40 MG TAB PO SCH (21:00)
[2022-05-04] MEDS ORDERED: LORAZEPAM 1 MG TABLET PO SCH (21:00)
--- NOTE | 2022-05-05 14:35 | EKG ---
Test Date: 2022-05-03 Test Time: 20:37:53 Manager Operations: MEASUREMENT RESULTS: Intervals: Rate: 61 MD: 172 QRSD: 102 QT: 448 QTc: 450 [place]: P: 72 MD: 172 QRS: 69 T: 208 INTERPRETIVE STATEMENTS: Normal sinus rhythm ST & T wave abnormality, consider inferolateral ischemia Abnormal ECG Compared to ECG 05/03/2022 17:46:17 Sinus bradycardia no longer present ST (T wave) deviation still present Possible ischemia still present Electronically Signed On 05-05-22 14:31:39 CDT by Zeeshan Moeller
--- NOTE | 2022-05-05 14:35 | EKG ---
Test Date: 2022-05-03 Test Time: 17:46:17 Manager Employee Relations: [employer] MEASUREMENT RESULTS: Intervals: Rate: 56 IA: 178 QRSD: 94 QT: 440 QTc: 424 [place]: P: 50 IA: 178 QRS: 43 T: 230 INTERPRETIVE STATEMENTS: Sinus bradycardia ST & T wave abnormality, consider inferolateral ischemia Abnormal ECG Compared to ECG 05/03/2022 17:44:42 No significant changes Electronically Signed On 05-05-22 14:31:42 CDT by Zeeshan Moeller
--- NOTE | 2022-05-06 08:01 | CON ---
Date of Consultation: 05/04/2022 Reason For Consultation: Hypertension, palpitation, shortness of breath, and atrial fibrillation. History Of Present Illness: Ms. Brice is a 77-year-old white woman. She sees Dr. Decker for her care and had an ablation in the past and had a difficult time of her blood pressure. She takes clonidine. Apparently had just placed on off the clonidine because she states . Blood pressure 180/172, heart rate of 170, with sinus rhythm, spontaneous, was found to have , potassium was 3.1. BNP was . Denied any chest pain. Troponin was normal. Past Medical History: Hypertension, atrial fibrillation. Allergies: NONE. Review of Systems: Negative. Social History: Negative. Family History: Negative. Medications: At karol. Physical Examination: Vital Signs: 180/72 heart rate of 82 to sinus rhythm. Neck: Supple. No bruits. Chest: Clear. Cardiac: Revealed a regular rhythm and rate with S4 gallops. Abdomen: Benign. Extremities: Revealed no clubbing, cyanosis, edema. Diagnostic Data: As stated earlier. Impression And Plan: Palpitation, shortness of breath, hypertension, however, second withdrawal will be back on her home medication. CT of the neck. Consider low-dose dulce. She actually has an outpatient workup, but the patient to be done down the road. Hopefully she can follow up with Dr. Decker in the near future. ELVIRA/TURNER Voice ID: [id number] Report ID: [id number] MTDD
== END 2022-05-04 15:31 | disposition home or self-care (01) | DRG 282 ==
LOC: ER 15:58 → 4TH 23:18
PROVIDERS: ADMIT Internal Medicine Nephrology; ATTEND Internal Medicine Nephrology
DX: I21.4 Non-ST elevation (NSTEMI) myocardial infarction (principal); I10 Essential (primary) hypertension; R55 Syncope and collapse; E87.6 Hypokalemia; Z20.822 Contact with and (suspected) exposure to COVID-19
CPT/HCPCS: 36415; 71045; 80048; 80053; 80061; 80076; 83735; 83880; 84439; 84443; 84484; 85025; 85610; 87811; 93005; 96361; 96372; 96374; 99285; J7040; J7614